=== PATIENT | female | born 1945 | race Caucasian/White ===

== ENCOUNTER → 2024-08-04 12:24 | Outpatient (REF) | payer MEDICARE, OTHER, SELFPAY ==
[2024-08-04 16:04] LABS: ALT (SGPT) 34 U/L (0-35); AST (SGOT) 52 U/L (14-36); Albumin 4.4 g/dl (3.5-5.0); Alkaline Phosphatase 59 U/L (38-126); Blood Urea Nitrogen 28 mg/dl (7-17); Calcium 10.2 mg/dl (8.4-10.2); Carbon Dioxide 28 mmol/L (22-30); Chloride 100 mmol/L (98-107); Glucose 106 mg/dl (70-99); Sodium 139 mmol/L (135-145); Total Bilirubin 0.7 mg/dl (0.2-1.3); Total Protein 7.1 g/dl (6.3-8.2); eGFR 56.95
[2024-08-04 16:24] LABS: Vitamin D, 25-OH*** 46.7 ng/mL (30-80)
== END ==
LOC: HWRAD 12:24
PROVIDERS: ATTENDING PHYSICIAN Hospitalist; FAMILY PHYSICIAN Family Medicine; REFERRING PHYSICIAN Psychiatry & Neurology Psychiatry
DX: M81.0 Age-related osteoporosis without current pathological fracture (principal); E55.9 Vitamin D deficiency, unspecified
CPT/HCPCS: 36415; 80053; 82306

== ENCOUNTER 2024-12-30 13:32 | Emergency (ER) | payer MEDICARE, OTHER, SELFPAY ==
[2024-12-30 13:36] VITALS: BP 195/89
[2024-12-30 14:05] VITALS: BMI 36.0
[2024-12-30 14:12] VITALS: BP 169/70
--- NOTE | 2024-12-30 14:14 | EDRN ---
Maddy DE LA TORRE in room w/ pt at this time. Pt states pain is constant 8/10 and increases w/ movement up to 10/10. Pt states pain is in R calf. No swelling noted in comparing usman legs.
--- NOTE | 2024-12-30 14:57 | ED.GENMED ---
History of Present Illness
<Janie Smith PA-C - Last Filed: 12/30/24 20:46>
General
Chief Complaint: DVT/Possible Blood Clot
Source: patient
Exam Limitations: none
Time Seen by Provider: 12/30/24 14:01
Nursing documentation reviewed up to this point in time: agreed with
History of Present Illness
History of Present Illness:
79-year-old female with a history of chronic back pain secondary to compression fractures and degenerative changes on opiates, right nephrectomy for staghorn calculus without any chronic kidney disease, hypertension, hyperlipidemia and diabetes who
presents for atraumatic right calf pain for the last day. Patient says it started yesterday and is worse with walking and better at rest although she still has 8 out of 10 pain at rest. It is not swollen or red, she has no weakness or numbness.
It does not seem to be radiating down from her back but her back always bothers her. She is never been told she has a disc herniation at that level that she knows of. She has recently had an MRI a couple of months ago and at outside facility
Patient sees Ortho at [facility] and gets pain injections at a pain center.
Patient takes oxycodone 10 mg 6 times a day
She took the oxycodone for this pain and it did not help. She does chronically have skin discoloration in her lower extremities that she has never been told was any problem. She was unaware of the term venous stasis changes. She has no known
peripheral arterial disease that she is aware of. She has never seen a vascular surgeon. Patient has not had any groin pain, thigh pain, abdominal pain, chest pain, shortness of breath. She also has not had any discoloration in the foot like
purple foot, cold foot, paresthesias. There is no risk factors for DVT that she is aware of but that is why she is here to be checked for a blood clot
Past History
<Janie Smith PA-C - Last Filed: 12/30/24 20:46>
Past History
ED Past Medical History: HTN, Hypercholesterolemia and IDDM
Phy Exam
<Janie Smith PA-C - Last Filed: 12/30/24 20:46>
Physical Exam
Physical Exam:
GENERAL: Alert , in no apparent distress
EYE: pupils equal and reactive
NECK: Supple
ENT: o/p clr, mmm.
CARDIAC: Regular rate and rhythm .no edema
LUNGS: Clear breath sounds bilaterally, no acute respiratory distress, no wheezes/rales/rhonchi
ABDOMEN: Soft, without focal tenderness, no r/g, no cvat, normal bowel sounds
NEUROLOGICAL: Alert and oriented, no focal neuro deficits
SKIN: Warm and dry, skin intact.+VENOUS STASIS SKIN CHNAGES (HYPERPIGMENTATION)
MUSCULOSKELETAL: No edema, well perfused. neg monica's sign
CALF NONTENDER
NO SWELLING
SOME PAIN WITH R KNEE FLEXION, NO EFFUSION
NORMAL STRENGTH AND SENSATION IN THE CALF AND THE FOOT;
NO FOOT DROP
BACK: MILD PAIN WITH CHAGNING POSITION/FLEXION
NO WEAKNESS
NEG STRAIGHT LEG RAISE
PSYCH: Normal and appropriate interaction.
Course
<Janie Smith PA-C - Last Filed: 12/30/24 20:46>
Orders/Labs/Results
Orders:
Orders
12/30/24 14:34
HYDROmorphone [Dilaudid] 1 mg IV NOW STA
US Vasc Ltd W JENNIFER Urgent
Reason For Exam: R leg pain, no DP pulse
Venous Doppler Lwr Ext Rt [US Periph Venous LOWER Ext RT] Urgent
Comment:
Reason For Exam: calf p[ain
12/30/24 15:11
Complete Blood Count/With Diff Urgent
Comprehensive Metabolic Panel Urgent
Creatine Phosphokinase Urgent
Comment: CPK ADDED ON BY FLOOR 3:40PM 12-30-24
PTT Urgent
Prothrombin Time Urgent
12/30/24 15:39
Add On- LAB Urgent
Tests Added?: cpk
12/30/24 17:51
Maykel Wrap Right-Treatment ONCE
Acetaminophen [Tylenol] 650 mg PO NOW STA
Dexamethasone Sod Phosphate [Decadron] 10 mg IV NOW STA
Abnormal Lab Results
12/30/24
15:11
WBC 3.3 L 10^3/uL
(4.8-10.8)
MCH 31.8 H pg
(27.0-31.0)
Plt Count 77 L 10^3/uL
(130-400)
Absolute Lymphs (auto) 1.0 L 10^3/uL
(1.2-3.4)
Immature Gran % 0.6 H %
(0-0.5)
Monocytes % 11.1 H %
(1.7-9.3)
PT 15.1 H Sec
(11.4-14.6)
BUN 27 H mg/dl
(7-17)
Glucose 165 H mg/dl
(70-99)
AST 43 H U/L
(14-36)
Creatine Kinase 191 H U/L
(30-135)
12/30/24 15:11
12/30/24 15:11
Vital Signs
Initial and Last Documented VS:
Initial Vital Signs
Temp Pulse Resp BP Pulse Ox
36.7 C 70 16 195/89 98
12/30/24 13:36 12/30/24 13:36 12/30/24 13:36 12/30/24 13:36 12/30/24 13:36
Last Documented Vital Signs
Temp Pulse Resp BP Pulse Ox
36.7 C 57 16 160/61 94
12/30/24 13:36 12/30/24 17:27 12/30/24 17:27 12/30/24 17:27 12/30/24 17:27
<Evaristo SaraiTawana Kohler, DO - Last Filed: 12/30/24 15:51>
Orders/Labs/Results
Orders:
Orders
12/30/24 14:34
HYDROmorphone [Dilaudid] 1 mg IV NOW STA
US Vasc Ltd W JENNIFER Urgent
Reason For Exam: R leg pain, no DP pulse
Venous Doppler Lwr Ext Rt [US Periph Venous LOWER Ext RT] Urgent
Comment:
Reason For Exam: calf p[ain
12/30/24 15:11
Complete Blood Count/With Diff Urgent
Comprehensive Metabolic Panel Urgent
Creatine Phosphokinase Urgent
Comment: CPK ADDED ON BY FLOOR 3:40PM 12-30-24
PTT Urgent
Prothrombin Time Urgent
12/30/24 15:39
Add On- LAB Urgent
Tests Added?: cpk
12/30/24 17:51
Maykel Wrap Right-Treatment ONCE
Acetaminophen [Tylenol] 650 mg PO NOW STA
Dexamethasone Sod Phosphate [Decadron] 10 mg IV NOW STA
Abnormal Lab Results
12/30/24
15:11
WBC 3.3 L 10^3/uL
(4.8-10.8)
MCH 31.8 H pg
(27.0-31.0)
Plt Count 77 L 10^3/uL
(130-400)
Absolute Lymphs (auto) 1.0 L 10^3/uL
(1.2-3.4)
Immature Gran % 0.6 H %
(0-0.5)
Monocytes % 11.1 H %
(1.7-9.3)
PT 15.1 H Sec
(11.4-14.6)
BUN 27 H mg/dl
(7-17)
Glucose 165 H mg/dl
(70-99)
AST 43 H U/L
(14-36)
Creatine Kinase 191 H U/L
(30-135)
12/30/24 15:11
12/30/24 15:11
Vital Signs
Initial and Last Documented VS:
Initial Vital Signs
Temp Pulse Resp BP Pulse Ox
36.7 C 70 16 195/89 98
12/30/24 13:36 12/30/24 13:36 12/30/24 13:36 12/30/24 13:36 12/30/24 13:36
Last Documented Vital Signs
Temp Pulse Resp BP Pulse Ox
36.7 C 57 16 160/61 94
12/30/24 13:36 12/30/24 17:27 12/30/24 17:27 12/30/24 17:27 12/30/24 17:27
<Janie Smith PA-C - Last Filed: 12/30/24 20:46>
MDM/Problems Addressed
Differential Diagnosis Includes:
DVT, LAU'S CYST, ARTERIAL DISEASE, PVD, LUMBAR RADICUOPATHY
<Janie Smith PA-C - Last Filed: 12/30/24 20:46>
*Critical Care Note
Total Time (30-74mins, 75-104mins- exclusive of procedures): Not Applicable
ED Attending Note
<Janie Smith PA-C - Last Filed: 12/30/24 20:46>
-
Portions of this chart may have been created with voice recognition software.� Occasional wrong word or��sound alike� substitutions may have occurred due to the inherent limitations of voice recognition software.
<Evaristo Kohler DO - Last Filed: 12/30/24 15:51>
ED Attending Note
Patient seen and examined by attending physician: Yes
I performed the substantive portion of visit, reviewed & personally made and approve the management plan that is documented in note by myself or MARCOS.: Yes
ED Attending Note:
I agree with Cynthia's note.
Patient presents complaining of pain in her right posterior calf. Pain seems worse with walking. No fever, chills. Patient does have chronic back pain and she initially thought her leg pain was related to this but then she was concerned she might
have a clot.
Physical exam:
Awake alert and oriented x 3, no distress
Abdomen: Nontender
Extremities: Extremities are of equal temperature bilaterally. They appear equally pink. Capillary refill is less than 5 seconds bilaterally. It is difficult to palpate a dorsalis pedis pulse on the right but I am able to detect a faint dorsalis
pedis pulse with Doppler. Posterior tibial pulses easily noted with Doppler.
Obtain ultrasound to rule out DVT and also assess her arterial flow. Low suspicion for an arterial emergency.
Discharge Plan
Departure
Patient Disposition: Home (Routine Discharge)
Date of Disposition: 12/30/24
Time of Disposition: 17:38
Patient with high blood pressure during this ER visit?: No
Condition: Fair
Covid-19: Not Applicable
Discharge Problem:
Lau cyst, Peripheral arterial disease
Instructions: Peripheral Vascular (Arterial) Disease (DC), Lau's Cyst (DC), BLOOD PRESSURE
Referrals:
Tin Warner III, MD [Active] - Follow up in 1 week
Rian Goff Jr., [Family Provider] -
Activity Restrictions/Additional Instructions:
Your ultrasound showed no deep venous clot in your leg, you did have a Lau's cyst behind your knee which can certainly cause calf pain. This is usually caused by arthritis within the knee. Wear an Maykel wrap during the day for the next 3 to 5 days
to see if this helps with compression. Usually these Lau's cyst do resolve on their own but when they are persistent and orthopedics potentially may drain them although not usually.
You should see a vascular doctor for some peripheral vascular disease that was noticed on your exam. Your ultrasound does document blood flow to your foot however there is some diminished flow to the leg and suggestive of arterial disease. Call to
make a follow-up appointment. This is not an emergency but should you have a color change to your foot, cold foot, severe pain in the foot, you should return to the ER immediately.
Interventions
Interventions:
*Risk Screen - Suicide Last Done: 12/30/24 13:36
*General Assessment Last Done: 12/30/24 14:06
*Neglect/Abuse Screening Last Done: 12/30/24 13:36
*ED- Fall Risk Assessment Last Done: 12/30/24 14:06
*ED COVID-19 Vaccine History Last Done: 12/30/24 14:06
*Nursing Disposition Last Done: 12/30/24 18:35
ED- Cardiac Assessment Last Done: 12/30/24 14:08
ED- Pulmonary Assessment Last Done: 12/30/24 14:08
ED-Peripheral Vascular Assessment Last Done: 12/30/24 14:10
ED-Skin Assessment Last Done: 12/30/24 14:08
Discharge Date and Time
Discharge Date/Time: 12/30/24 18:35
Print Language: YI
[2024-12-30] MEDS: DILAUDID 1 MG IV (15:06)
[2024-12-30 15:16] VITALS: BP 156/70
[2024-12-30 15:21] VITALS: BP 157/66
[2024-12-30 15:30] LABS: INR 1.16; PT 15.1 Sec (11.4-14.6)
[2024-12-30 15:31] LABS: APTT 32.2 Sec (23.4-35.0)
[2024-12-30 15:34] LABS: ALT (SGPT) 31 U/L (0-35); AST (SGOT) 43 U/L (14-36); Albumin 3.9 g/dl (3.5-5.0); Alkaline Phosphatase 60 U/L (38-126); Blood Urea Nitrogen 27 mg/dl (7-17); Calcium 9.4 mg/dl (8.4-10.2); Carbon Dioxide 27 mmol/L (22-30); Chloride 104 mmol/L (98-107); Estimated Creatinine Clearance 59 ml/min; Glucose 165 mg/dl (70-99); Potassium 3.8 mmol/L (3.5-5.1); Sodium 139 mmol/L (135-145); Total Bilirubin 0.8 mg/dl (0.2-1.3); Total Protein 6.6 g/dl (6.3-8.2); eGFR > 60.00
[2024-12-30 15:40] LABS: % Basophils 0.6 % (0-2); % Eosinophils 3.1 % (0-6); % Immature Granulocytes 0.6 % (0-0.5); % Lymphocytes 29.2 % (20.5-51.1); % Monocytes 11.1 % (1.7-9.3); % Neutrophils 55.4 % (42.2-75.2); Absolute Eosinophils 0.1 10^3/uL (0-0.7); Absolute Monocytes 0.4 10^3/uL (0.1-0.6); Absolute Neutrophils 1.8 10^3/uL (1.4-6.5); Hemoglobin 13.9 g/dL (12.0-16.0); Mean Corp Hgb Conc. 34.8 g/dL (33.0-37.0); Mean Corpuscular Hgb 31.8 pg (27.0-31.0); Mean Corpuscular Volume 91.5 fL (81.0-99.0); Mean Platelet Volume 10.4 fL (7.4-10.4); Nucleated Red Blood Cells % 0 %; Platelet Count 77 10^3/uL (130-400); Red Blood Cell Count 4.37 10^6/uL (4.20-5.40); Red Cell Dist. Width 13.3 % (11.5-14.5); White Blood Cell Count 3.3 10^3/uL (4.8-10.8)
[2024-12-30 15:45] VITALS: BP 152/69
[2024-12-30 15:54] LABS: Creatine Phosphokinase 191 U/L (30-135)
[2024-12-30 17:27] VITALS: BP 160/61
--- NOTE | 2024-12-30 17:44 | EDRN ---
Maddy DE LA TORRE in room w/ pt at this time.
[2024-12-30] MEDS: DECADRON 10 MG IV (18:05)
[2024-12-30] MEDS: TYLENOL 650 MG PO (18:06)
--- NOTE | 2024-12-30 18:32 | EDRN ---
Pt ambulated to BR w/ walker and back w/ no assist. From room P-1 across triage area and back to P-1. Pt felt better as she ambulated.
== END 2024-12-30 18:35 | disposition home or self-care (01) ==
LOC: EMR 13:32
PROVIDERS: Physician Assistant; EMERGENCY PHYSICIAN Emergency Medicine; FAMILY PHYSICIAN Family Medicine
DX: M71.21 Synovial cyst of popliteal space [Baker], right knee (principal); I73.9 Peripheral vascular disease, unspecified; E78.00 Pure hypercholesterolemia, unspecified; I10 Essential (primary) hypertension; E11.9 Type 2 diabetes mellitus without complications; G89.29 Other chronic pain; M54.9 Dorsalgia, unspecified; Z90.5 Acquired absence of kidney; Z79.4 Long term (current) use of insulin
CPT/HCPCS: 96374; 96375; 99284; 80053; 82550; 85025; 85610; 85730; 93922; 93926; 93971

== ENCOUNTER 2025-01-09 22:24 | Emergency (ER) | payer MEDICARE, OTHER, SELFPAY ==
[2025-01-09 22:26] VITALS: BP 157/75
[2025-01-09 23:36] VITALS: BMI 35.7
[2025-01-09 23:45] VITALS: BP 178/68
--- NOTE | 2025-01-09 23:58 | ED.GENMED ---
History of Present Illness
General
Chief Complaint: Dizziness
Source: patient and family (Daughter at bedside)
Exam Limitations: none
Time Seen by Provider: 01/09/25 23:37
Nursing documentation reviewed up to this point in time: agreed with
History of Present Illness
History of Present Illness:
79-year-old female is here for pain in her right leg.
She states she was here 2 weeks ago for similar symptoms and they did an ultrasound to rule out DVT and told her she had a Lau's cyst.
She states they referred her to a vascular surgeon. She has an appointment with vascular surgery in January.
She states the pain in her leg has become gradually worse and now has pain with walking.
She denies feeling dizzy at this time, during initial encounter, patient never mentioned dizziness but her daughter at bedside keeps saying 'and she was dizzy and she was dizzy...'
Pt states as she has been walking past 2 days, feels unsteady on her feet due to pain right leg and swelling of feet and she is afraid she is going to fall. So because she felt like she was imbalanced and going to fall due to her right leg pain,
she states it felt like she was dizzy or lightheaded.
Past History
Past History
ED Past Medical History: HTN, Hypercholesterolemia and IDDM
Review of Systems
Review of Systems
Allergies reviewed?: Yes
All Other Systems: ROS reviewed and negative except as documented in HPI and ROS
Constitutional: Denies fever or chills
Respiratory: Denies trouble breathing
Cardiac: Denies chest pain
ABD/GI: Denies abdominal pain, nausea, vomiting or diarrhea
: Denies dysuria, frequency or difficulty voiding
Musculoskeletal: Reports back pain (Chronic)
Skin: Reports no symptoms
Neurological: Reports no symptoms
Phy Exam
Physical Exam
Physical Exam:
GENERAL: No acute distress. A&Ox3.
CONSTITUTIONAL: Afebrile.
EYES: clear, conjunctivae normal
ENMT: moist mucus membranes, Pharynx nl
RESPIRATORY: Regular respirations, nonlabored, lungs clear.
CARDIOVASCULAR: Regular rate and rhythm, no murmurs, no rubs. Left foot DP pulse 2/4, right foot DP pulse 1/4. Brisk capillary refill, foot is warm and pink.
GI: Soft, nontender, normal BS
MUSCULOSKELETAL: Moves with ease. Well perfused. No tenderness to palpation of right lower extremity, calf nontender, right foot dorsum is a little puffy but no significant edema.
SKIN: Warm, dry, pink
PSYCH: Normal mood and affect. Well kept, interactive and appropriate
NEUROLOGIC: Awake, alert and oriented. Cranial nerves II to XII intact. No focal neurological deficits
Course
Orders/Labs/Results
Orders:
Orders
01/09/25 22:28
ECG [Electrocardiogram (*1)] Urgent
Reason for Study: Vertigo / Dizzy
EKG- Treatment ONCE
01/09/25 22:53
Complete Blood Count/With Diff Urgent
Comment: REDRAW
Comprehensive Metabolic Panel Urgent
Comment: REDRAW
01/10/25 00:47
Gabapentin [Neurontin] 100 mg PO NOW STA
Abnormal Lab Results
01/10/25
00:13
WBC 4.2 L 10^3/uL
(4.8-10.8)
MCH 31.6 H pg
(27.0-31.0)
Plt Count 97 L 10^3/uL
(130-400)
MPV 10.7 H fL
(7.4-10.4)
Abs Immat Gran (auto) 0.1 H 10^3/uL
(0-0.05)
Absolute Lymphs (auto) 1.1 L 10^3/uL
(1.2-3.4)
Immature Gran % 1.7 H %
(0-0.5)
Monocytes % 13.2 H %
(1.7-9.3)
BUN 25 H mg/dl
(7-17)
Glucose 164 H mg/dl
(70-99)
01/10/25 00:13
01/10/25 00:13
Vital Signs
Initial and Last Documented VS:
Initial Vital Signs
Temp Pulse Resp BP Pulse Ox
98.8 F 82 19 157/75 97
01/09/25 22:26 01/09/25 22:26 01/09/25 22:26 01/09/25 22:26 01/09/25 22:26
Last Documented Vital Signs
Temp Pulse Resp BP Pulse Ox
98.8 F 73 20 162/63 95
01/09/25 22:26 01/10/25 01:15 01/10/25 01:00 01/10/25 01:00 01/10/25 01:10
MDM/Problems Addressed
Differential Diagnosis Includes:
PAD, neuropathy, Lau's cyst
MDM/Problems Addressed:
79-year-old female is here for pain in her right leg.
She states she was here 2 weeks ago for similar symptoms and they did an ultrasound to rule out DVT and told her she had a Lau's cyst. She thinks its the Lau's cyst causing her pain
She states they referred her to a vascular surgeon. She has an appointment with vascular surgery in January (4 weeks).
She states the pain in her leg has become gradually worse and now has pain with walking.
She also states both her feet felt swollen past 2 days and didn't feel like she could walk with good balance due to the feeling in her feet and was afraid she would fall
She denies feeling dizzy at this time, during initial encounter, patient never mentioned dizziness but her daughter at bedside keeps saying 'and she was dizzy and she was dizzy...'
Pt states as she has been walking past 2 days, feels unsteady on her feet due to pain right leg and swelling of feet and she is afraid she is going to fall. So because she felt like she was imbalanced and going to fall due to her right leg pain,
she states it felt like she was dizzy or lightheaded.
CBC: No clinically significant abnormality. Patient has chronic mild thrombocytopenia
CMP: Unremarkable
EKG: Normal sinus rhythm
I reviewed the ultrasound of her leg from 12/30 and there was a right Lau's cyst that was similar to that seen on a previous ultrasound in 2021
Patient had arterial studies of her legs and that is the reason she was referred to vascular surgery.
I explained these results to the patient and her daughter, and patient was amazed that it is not the Lau's cyst that is causing her pain. I explained to her how peripheral arterial disease can cause her type of pain, she is diabetic and may be
experiencing neuropathic pain also.
Patient is already taking hydrocodone 10 mg tablets up to 6 times a day for her chronic back pain and she is also taking Celebrex 1 or 2 times a day as well as Tylenol.
Plan: Start patient on Neurontin and she will let her PCP know if it helps after a week
Also suggested CBD ointment for her leg pain
*EKG
EKG Intrepretation Date: 01/09/22
Interpretation: normal
Heart Rate: 81
Rate: normal
Rhythm: sinus
[place]: normal axis
Interval: normal interval
QRS Pattern: normal QRS
Ischemia: no ischemia
*Critical Care Note
Total Time (30-74mins, 75-104mins- exclusive of procedures): Not Applicable
ED Attending Note
-
Portions of this chart may have been created with voice recognition software.� Occasional wrong word or��sound alike� substitutions may have occurred due to the inherent limitations of voice recognition software.
Discharge Plan
Departure
Patient Disposition: Home (Routine Discharge)
Date of Disposition: 01/10/25
Time of Disposition: 00:57
Patient with high blood pressure during this ER visit?: No
Condition: Fair
Discharge Problem:
Pain in right leg
Instructions: Peripheral artery disease and claudication, Neuropathic pain
Prescriptions:
New
gabapentin 100 mg capsule
100 mg PO BID Qty: 30 0RF
No Action
irbesartan-hydrochlorothiazide [Avalide] 150-12.5 mg Tablet
2 tab PO DAILY
atenolol 100 mg Tablet
200 mg PO BID
amlodipine [Norvasc] 10 mg Tablet
10 mg PO DAILY
celecoxib [Celebrex] 100 mg Capsule
100 mg PO BID
lisinopril 2.5 mg Tablet
2.5 mg PO DAILY
ezetimibe [Zetia] 10 mg Tablet
10 mg PO HS
Lantus U-100 Insulin 100 unit/mL Cartridge
0 unit SC HS
omega-3 acid ethyl esters [Lovaza] 1 gram Capsule
2 cap PO BID
fenofibrate nanocrystallized [Tricor] 48 mg Tablet
48 mg PO HS
oxycodone 10 mg Tablet
10 mg PO Q4H PRN (Reason: pain)
Januvia
100 mg PO DAILY
Novolog FlexPen U-100 Insulin
0 unit SC BID
Referrals:
Your, vascular surgeon [Other] - Keep scheduled appt
Rian Goff Jr., DO [Family Provider] -
Activity Restrictions/Additional Instructions:
As we discussed, your leg pain may be caused by your peripheral artery disease or it could be neuropathy pain from your diabetes.
Try the gabapentin(Neurontin) and let your doctor know if it helps, he will have to write a prescription if you need more. I sent a prescription for this to your pharmacy
Keep your appointment with the vascular doctor in January
You may try CBD ointment topically to the areas of your leg that are painful.
Interventions
Interventions:
*Risk Screen - Suicide Last Done: 01/09/25 22:26
*General Assessment Last Done: 01/10/25 01:54
*Neglect/Abuse Screening Last Done: 01/09/25 22:26
*ED- Fall Risk Assessment Last Done: 01/10/25 01:54
*ED COVID-19 Vaccine History Last Done: 01/10/25 01:10
*Nursing Disposition Last Done: 01/10/25 01:30
ED- Neurological Assessment Last Done: 01/09/25 23:40
ED- Cardiac Assessment Last Done: 01/09/25 23:40
Discharge Date and Time
Discharge Date/Time: 01/10/25 01:30
Print Language: NEPALI
[2025-01-10 00:32] VITALS: BP 161/71
[2025-01-10 00:39] LABS: ALT (SGPT) 27 U/L (0-35); AST (SGOT) 34 U/L (14-36); Albumin 3.7 g/dl (3.5-5.0); Alkaline Phosphatase 70 U/L (38-126); Blood Urea Nitrogen 25 mg/dl (7-17); Calcium 9.7 mg/dl (8.4-10.2); Carbon Dioxide 25 mmol/L (22-30); Chloride 104 mmol/L (98-107); Estimated Creatinine Clearance 59 ml/min; Glucose 164 mg/dl (70-99); Potassium 3.8 mmol/L (3.5-5.1); Sodium 137 mmol/L (135-145); Total Bilirubin 0.7 mg/dl (0.2-1.3); Total Protein 6.5 g/dl (6.3-8.2); eGFR > 60.00
[2025-01-10 00:42] LABS: % Basophils 0.7 % (0-2); % Eosinophils 2.4 % (0-6); % Immature Granulocytes 1.7 % (0-0.5); % Monocytes 13.2 % (1.7-9.3); Absolute Eosinophils 0.1 10^3/uL (0-0.7); Absolute Immature Granulocytes 0.1 10^3/uL (0-0.05); Absolute Lymphocytes 1.1 10^3/uL (1.2-3.4); Absolute Monocytes 0.6 10^3/uL (0.1-0.6); Absolute Neutrophils 2.4 10^3/uL (1.4-6.5); Hemoglobin 13.6 g/dL (12.0-16.0); Mean Corp Hgb Conc. 34.9 g/dL (33.0-37.0); Mean Corpuscular Hgb 31.6 pg (27.0-31.0); Mean Corpuscular Volume 90.7 fL (81.0-99.0); Mean Platelet Volume 10.7 fL (7.4-10.4); Nucleated Red Blood Cells % 0 %; Platelet Count 97 10^3/uL (130-400); Red Cell Dist. Width 13.4 % (11.5-14.5); White Blood Cell Count 4.2 10^3/uL (4.8-10.8)
[2025-01-10 01:00] VITALS: BP 162/63
[2025-01-10] MEDS: NEURONTIN 100 MG PO (01:35)
== END 2025-01-10 01:30 | disposition home or self-care (01) ==
LOC: EMR 22:24
PROVIDERS: EMERGENCY PHYSICIAN Student in an Organized Health Care Education/Training Program; FAMILY PHYSICIAN Family Medicine
DX: M79.604 Pain in right leg (principal); I10 Essential (primary) hypertension; E78.00 Pure hypercholesterolemia, unspecified; E11.9 Type 2 diabetes mellitus without complications; G89.29 Other chronic pain; D69.6 Thrombocytopenia, unspecified; I73.9 Peripheral vascular disease, unspecified; Z79.4 Long term (current) use of insulin; Z79.899 Other long term (current) drug therapy
CPT/HCPCS: 99284; 80053; 85025; 93005

== ENCOUNTER 2025-01-30 08:28 | Day surgery (SDC) | payer MEDICARE, OTHER, SELFPAY ==
[2025-01-24 12:02] VITALS: BMI 39.4
--- NOTE | 2025-01-25 09:14 | PTCARENOTE ---
Platelets 95, collected 01/24/25, Galina at Dr Warner's office notified.
--- NOTE | 2025-01-25 15:04 | PTCARENOTE ---
Plt count 95 collected 01/24/25, reported to Dr Rolon, no further intervention requested.
[2025-01-30] VITALS (16 sets, daily range): BP systolic 14–205; BP diastolic 48–73
[2025-01-30 09:57] LABS: Glucose - Point of Care 115 mg/dl (70-99)
--- NOTE | 2025-01-30 10:19 | W.SUR.PREOP ---
Pre-Operative Surgical Note
-
I have examined this patient prior to the performance of the scheduled procedure.
The patient's condition is unchanged from the time of the current History and
Physical and the patient is able to undergo the scheduled procedure.
[2025-01-30 12:42] LABS: Glucose - Point of Care 125 mg/dl (70-99)
[2025-01-30] MEDS: LOW STRENGTH ASPIRIN 81 MG PO (13:15)
[2025-01-30] MEDS: PLAVIX 150 MG PO (13:16)
[2025-01-30] MEDS: AVAPRO 300 MG PO (14:18)
[2025-01-30] MEDS: NORVASC 10 MG PO (14:19)
[2025-01-30] MEDS: ZESTRIL 2.5 MG PO (14:19)
[2025-01-30] MEDS: ORETIC 25 MG PO (14:20)
--- NOTE | 2025-01-30 17:24 | OR.RPT ---
Operative Report
Operative Report
Date of Operation: 01/30/2025
Pre Op Diagnosis:
1. [place] artery atherosclerosis with right toe ulcers
2. Diabetes with lower extremity atherosclerotic disease
Post Op Diagnosis:
1. [place] artery atherosclerosis with right toe ulcers
2. Diabetes with lower extremity atherosclerotic disease
Procedure:
1.) intravascular lithotripsy to right distal superficial femoral artery and above-knee popliteal artery (5 mm x 80 mm E8 shockwave balloon)
2.) balloon angioplasty and drug-eluting stent placement to distal superficial femoral artery and above-knee popliteal artery (6 mm x 100 mm Zilver PTX stent)
3.) diagnostic aortobiiliac arteriogram
4.) diagnostic right lower extremity arteriogram
5.) ultrasound-guided percutaneous access to the left common femoral artery
6.) Pro-glide closure of left common femoral artery access
Surgeon: Tin Warner III, MD
Structural Rigger: Lane Guy MD PGY1
Anesthesia: Sedation with local
Fluoroscopy:
32.8 min
439 mGy
162.91 gy.cm2
Complications: None
Estimated Blood Loss: Less than 20 cc
History and Indications for Procedure: 79-year-old female with limb threatening ischemia to her right foot manifested by nonhealing ulcer between the 4th and 5th toes
Procedure in Detail: Rosibel George was correctly identified and placed supine on the operating table. After adequate induction of anesthesia the bilateral groins were prepped and draped in the usual sterile fashion. A timeout was performed with
the nursing and anesthesia staff confirming the patient's identity as well as the nature and laterality of the procedure.
The left common femoral artery was identified under ultrasound guidance. The artery was patent. The superior and inferior aspects of the femoral head were identified with radiographic guidance and marked at the skin level. The proposed puncture site
was infiltrated with local anesthesia. Under ultrasound guidance we accessed the left common femoral artery with a micropuncture needle and upsized to a 5 Fr sheath over a Bentson wire. The wire and a Shepherds hook flush catheter were advanced into
the distal abdominal aorta and a diagnostic aorto-biiliac arteriogram was performed:
AORTO-ILIAC ARTERIOGRAM:
Aorta: Patent with no significant stenosis identified
Right common iliac artery: Patent with no significant stenosis identified
Right external iliac artery: Patent with no significant stenosis identified
Left common iliac artery: Patent with no significant stenosis identified
Left external iliac artery: Patent with no significant stenosis identified
Under roadmap guidance using a Glidewire and the Shepherds hook catheter we selected the right common iliac artery and then the external iliac artery. A Quickcross catheter was tracked up and over the aortic bifurcation and placed in the distal
external iliac artery. A diagnostic right lower extremity arteriogram was then performed which demonstrated the following:
RIGHT LOWER EXTREMITY:
Common femoral artery: Patent with no significant stenosis identified
Profunda femoral artery: Patent with no significant stenosis identified
Superficial femoral artery: Patent. Calcified plaque in the distal superficial femoral artery contributing to focal high-grade stenosis
Popliteal artery: Calcified plaque with focal high-grade stenosis above the knee. Patent behind the knee and below the knee with no significant stenosis identified
Anterior tibial artery: Patent stump but occluded thereafter with no distal reconstitution identified
Tibioperoneal trunk: Patent
Peroneal artery: Patent
Posterior tibial artery: Patent. Dominant tibial artery runoff. Continues across the ankle to form plantar branches which supplied the forefoot
ENDOVASCULAR INTERVENTION: Systemic heparin was administered. Exchanged out for a 6 Fr 45 cm sheath over a Storq wire. Selected the superficial femoral artery under roadmap guidance with Quickcross catheter and glidewire. The distal SFA and
above-knee popliteal artery were crossed with a 0.014 Glidewire advantage and 0.014 catheter. The wire and catheter were advanced into the below the knee popliteal artery and subtraction angio confirmed proper position in the true lumen. Due to the
heavily calcified nature of the superficial femoral and popliteal artery disease and in an effort to modify the calcium to achieve maximum luminal gain with endovascular intervention I elected to proceed with intravascular lithotripsy. A 5 mm x 80
mm E8 shockwave balloon was placed across the stenosis under roadmap guidance. Alternating rounds of lithotripsy pulse delivery at sub-nominal pressure and angioplasty at nominal pressure was performed across the stenosis. In between rounds of pulse
delivery and angioplasty the balloon was deflated and repositioned under roadmap guidance. All 400 pulses were delivered. Subsequent arteriogram demonstrated improved result. I then brought into position a 6 mm x 100 mm Zilver PTX stent and
positioned this across the distal superficial femoral artery/above-knee popliteal artery stenosis under roadmap guidance. The stent was deployed in the desired location and the delivery system removed over the wire. A 6 mm angioplasty balloon was
used to profile the entire length of the stent.
COMPLETION ARTERIOGRAM: Excellent technical result. Brisk flow through a widely patent superficial femoral artery and popliteal artery. Stent widely patent with brisk flow. No significant residual stenosis identified. Brisk flow into the foot
via the posterior tibial artery with easily identifiable flow to the forefoot and digits.
Satisfied with this result we concluded the procedure. The sheath tip was pulled back into the left external iliac artery. A single Pro-glide closure device was used to obtain hemostasis at the left common femoral artery access site. Protamine was
administered. Hemostasis was achieved in the left groin and a sterile dressing was applied.
The patient tolerated the procedure well and was taken to the recovery area in stable condition.
Attestation: I was present and responsible for the entire procedure.
Signed:
Tin Warner III, MD
Vascular Surgery
[facility]
== END 2025-01-30 17:35 | disposition home or self-care (01) ==
LOC: CATH 08:28
PROVIDERS: ATTENDING PHYSICIAN Surgery Vascular Surgery; PRIMARYCARE PHYSICIAN Family Medicine
DX: I70.235 Atherosclerosis of native arteries of right leg with ulceration of other part of foot (principal); E11.51 Type 2 diabetes mellitus with diabetic peripheral angiopathy without gangrene; L97.519 Non-pressure chronic ulcer of other part of right foot with unspecified severity; E11.621 Type 2 diabetes mellitus with foot ulcer; I10 Essential (primary) hypertension; Z90.5 Acquired absence of kidney; Z79.4 Long term (current) use of insulin; Z79.899 Other long term (current) drug therapy
CPT/HCPCS: C9765; 75625; 75716; 82962; C1725; C1760; C1769; C1874; C1894

== ENCOUNTER → 2025-02-01 15:52 | Outpatient (REF) | payer MEDICARE, OTHER, SELFPAY | LOC: HWRAD 15:52 | PROVIDERS: ATTENDING PHYSICIAN Podiatrist Foot & Ankle Surgery; FAMILY PHYSICIAN Family Medicine | DX: M86.171 Other acute osteomyelitis, right ankle and foot (principal) | CPT/HCPCS: 73630 ==

== ENCOUNTER 2025-02-20 07:04 | Emergency (ER) | payer MEDICARE, OTHER, SELFPAY ==
[2025-02-20 07:05] VITALS: BP 158/71
--- NOTE | 2025-02-20 07:39 | ED.GENMED ---
History of Present Illness
General
Chief Complaint: Swelling
Source: patient
Exam Limitations: none
Time Seen by Provider: 02/20/25 07:27
Nursing documentation reviewed up to this point in time: agreed with
History of Present Illness
History of Present Illness:
79-year-old female presents today for evaluation. Patient with recent balloon angioplasty and drug-eluting stent to distal superficial femoral artery and above-knee popliteal artery of right lower extremity, January 30. She is followed by Dr. Warner.
She presents to the ER complaining of right calf pain kept her awake last night. She denies any injury. She does report her to feel cold at night. She is on aspirin Plavix.
She denies any fever chills or redness to the area. No shortness of breath.
She does have a history of back pain denies any recent trauma.
Past History
Past History
ED Past Medical History: HTN, Hypercholesterolemia and IDDM
Review of Systems
Review of Systems
Allergies reviewed?: Yes
All Other Systems: ROS reviewed and negative except as documented in HPI and ROS
Constitutional: Reports no symptoms
Respiratory: Reports no symptoms
Cardiac: Reports no symptoms
ABD/GI: Reports no symptoms
Musculoskeletal: Reports other (right leg pain mild swelling to foot )
Skin: Reports no symptoms
Hematologic/Lymphatic: Reports no symptoms
Psychiatric: Reports no symptoms
Phy Exam
General Physical Exam
General Presentation: no apparent distress
General age: appears stated age
General Skin: warm and dry
General Habitus: normal
General Mental: alert
General Hydration: appears well hydrated
Neurological Exam
Neurological Exam: alert and oriented x3
Musculoskeletal Exam
Musculoskeletal Exam: full ROM and other (Pulses by Doppler bilateral lower extremities; right lower extremity warm to touch normal color mild swelling to the dorsal foot no obvious swelling to calf no actual calf tenderness)
Skin Exam
Skin Exam: normal color and warm/dry
Psychiatric Exam
Psychiatric Exam: normal mood/affect
Scores
Heart Failure Risk
Heart Failure Risk Score: Not Applicable
Course
Orders/Labs/Results
Orders:
Orders
02/20/25 07:41
IV Insert/Care/Rem.- Treatment PRN
Venous Doppler Lwr Ext Rt [US Perip Venous LOWER Ext RT] Urgent
Comment:
Reason For Exam: pain right calf
02/20/25 08:11
Complete Blood Count/With Diff Urgent
Comprehensive Metabolic Panel Urgent
02/20/25 10:38
Lower Ext Arterial & JENNIFER US [ Periph Art LOWER Ext w JENNIFER] Urgent
Comment:
Reason For Exam: right calf pain
02/20/25 11:52
Oxycodone [Roxicodone] 10 mg PO NOW STA
02/20/25 11:58
Dexamethasone Sod Phosphate [Decadron] 10 mg IM NOW STA
Abnormal Lab Results
02/20/25
08:11
WBC 4.1 L 10^3/uL
(4.8-10.8)
RBC 4.13 L 10^6/uL
(4.20-5.40)
MCH 32.2 H pg
(27.0-31.0)
Plt Count 83 L 10^3/uL
(130-400)
Absolute Lymphs (auto) 0.9 L 10^3/uL
(1.2-3.4)
Monocytes % 10.3 H %
(1.7-9.3)
Eosinophils % 6.7 H %
(0-6)
Potassium 3.4 L mmol/L
(3.5-5.1)
BUN 19 H mg/dl
(7-17)
Glucose 143 H mg/dl
(70-99)
02/20/25 08:11
02/20/25 08:11
Vital Signs
Initial and Last Documented VS:
Initial Vital Signs
Temp Pulse Resp BP Pulse Ox
97.8 F 66 20 158/71 98
02/20/25 07:05 02/20/25 07:05 02/20/25 07:05 02/20/25 07:05 02/20/25 07:05
Last Documented Vital Signs
Temp Pulse Resp BP Pulse Ox
97.8 F 70 20 156/88 98
02/20/25 07:05 02/20/25 12:00 02/20/25 07:05 02/20/25 12:00 02/20/25 12:00
MDM/Problems Addressed
Differential Diagnosis Includes:
Less likely arterial occlusion, DVT, infection, radicular pain/sciatica pain
MDM/Problems Addressed:
As documented patient is an 79-year-old female status post lithotripsy stent to the superficial right femoral artery and above-knee popliteal artery. This was done on January 30. She is on Plavix, aspirin and she is followed by vascular surgery. She
presents with pain in the right calf that woke her up while sleeping. This is not consistent with claudication pain. She has warm lower extremities bilateral with pulses by Doppler ultrasound arterial were done and normal. Possible nerve type
sciatica radicular pain. She does have oxycodone to take at home she is a diabetic I gave her 1 dose of IM Decadron however discussed close outpatient follow-up with family doctor to follow this and for further continued reevaluation. She may take
Tylenol as well. She is in no acute distress no neurological deficits.
*Radiology
Radiology exam reviewed: radiology read reviewed
*Pulse Oximetry
Patient hypoxic: no
*Critical Care Note
Total Time (30-74mins, 75-104mins- exclusive of procedures): Not Applicable
Data Reviewed
Review of Other/Old Records Reveals: Operative Reports and Discharge Summary
Source: patient and family
Patient Management
Discussion with other providers: Test Grader (Dr Britt )
ED Attending Note
-
Portions of this chart may have been created with voice recognition software.� Occasional wrong word or��sound alike� substitutions may have occurred due to the inherent limitations of voice recognition software.
Discharge Plan
Departure
Patient Disposition: Home (Routine Discharge)
Date of Disposition: 02/20/25
Time of Disposition: 12:30
Patient with high blood pressure during this ER visit?: Yes
Condition: Fair
Covid-19: Not Applicable
Discharge Problem:
Pain in right leg
Instructions: BLOOD PRESSURE
Prescriptions:
No Action
irbesartan-hydrochlorothiazide [Avalide] 150-12.5 mg Tablet
2 tab PO DAILY
atenolol 100 mg Tablet
200 mg PO BID
amlodipine [Norvasc] 10 mg Tablet
10 mg PO DAILY
celecoxib [Celebrex] 100 mg Capsule
100 mg PO BID
lisinopril 2.5 mg Tablet
2.5 mg PO DAILY
ezetimibe [Zetia] 10 mg Tablet
10 mg PO HS
omega-3 acid ethyl esters [Lovaza] 1 gram Capsule
2 cap PO BID
fenofibrate nanocrystallized [Tricor] 48 mg Tablet
48 mg PO HS
oxycodone 10 mg Tablet
10 mg PO Q4H PRN (Reason: pain)
Novolog FlexPen U-100 Insulin
0 unit SC BID
Januvia 100 mg Tablet
100 mg PO DAILY
insulin glargine [Lantus Solostar U-100 Insulin] 100 unit/mL (3 mL) Insulin Pen
40 - 60 unit SC HS
gabapentin 100 mg capsule
100 mg PO HS
clopidogrel 75 mg Tablet
75 mg PO DAILY Qty: 90 0RF
aspirin 81 mg capsule
81 mg PO DAILY Qty: 90 0RF
Referrals:
Rian Goff Jr., DO [Family Provider, Family Practice]
Activity Restrictions/Additional Instructions:
As discussed your ultrasounds were negative for acute findings. You were given 1 dose of steroids here in the ER it is possible that this is a nerve type pain such as sciatica however please follow-up close with your family doctor for reevaluation
of symptoms May take Tylenol for pain you have oxycodone for pain as well that you previously were prescribed. Take as directed. Please call your family doctor today for appointment in next several days.
return if any worsening of symptoms
Interventions
Interventions:
*Risk Screen - Suicide Last Done: 02/20/25 07:05
*General Assessment Last Done: 02/20/25 07:05
*Neglect/Abuse Screening Last Done: 02/20/25 11:31
*ED- Fall Risk Assessment Last Done: 02/20/25 10:57
*ED COVID-19 Vaccine History Last Done: 02/20/25 11:31
ED- Pulmonary Assessment Last Done: 02/20/25 10:56
ED-Skin Assessment Last Done: 02/20/25 10:57
Discharge Date and Time
Print Language: SWEDISH
[2025-02-20 08:32] LABS: % Basophils 0.7 % (0-2); % Eosinophils 6.7 % (0-6); % Immature Granulocytes 0.5 % (0-0.5); % Lymphocytes 21.4 % (20.5-51.1); % Monocytes 10.3 % (1.7-9.3); % Neutrophils 60.4 % (42.2-75.2); Absolute Eosinophils 0.3 10^3/uL (0-0.7); Absolute Lymphocytes 0.9 10^3/uL (1.2-3.4); Absolute Monocytes 0.4 10^3/uL (0.1-0.6); Absolute Neutrophils 2.5 10^3/uL (1.4-6.5); Hematocrit 37.8 % (37.0-47.0); Hemoglobin 13.3 g/dL (12.0-16.0); Mean Corp Hgb Conc. 35.2 g/dL (33.0-37.0); Mean Corpuscular Hgb 32.2 pg (27.0-31.0); Mean Corpuscular Volume 91.5 fL (81.0-99.0); Nucleated Red Blood Cells % 0 %; Platelet Count 83 10^3/uL (130-400); Red Blood Cell Count 4.13 10^6/uL (4.20-5.40); Red Cell Dist. Width 13.6 % (11.5-14.5); White Blood Cell Count 4.1 10^3/uL (4.8-10.8)
[2025-02-20 08:56] LABS: ALT (SGPT) 26 U/L (0-35); AST (SGOT) 36 U/L (14-36); Alkaline Phosphatase 53 U/L (38-126); Blood Urea Nitrogen 19 mg/dl (7-17); Calcium 9.2 mg/dl (8.4-10.2); Carbon Dioxide 26 mmol/L (22-30); Chloride 105 mmol/L (98-107); Glucose 143 mg/dl (70-99); Potassium 3.4 mmol/L (3.5-5.1); Sodium 138 mmol/L (135-145); Total Protein 6.6 g/dl (6.3-8.2); eGFR > 60.00
--- NOTE | 2025-02-20 11:01 | CON.VAS ---
Addendum entered and electronically signed by JAMIA Viveros 02/20/25 11:53:
Reviewed arterial ultrasound with JENNIFER/TBI and case discussed with on-call vascular surgeon Dr. Jimmy Britt M.D., recommend evaluation for nonarterial etiologies of pain, relayed to ED provider Galina Harrington.
Original Note:
Consultation
Consultation Request
Date/Time Consultation Performed: 02/20/25 1100
Requesting Provider: Galina Harrington
Performing Provider: Lupe Frederick, ADRIANO-C for Jimmy Britt M.D.
Reason for Consultation: Right calf pain
Medical History
-
Chief Complaint: Right calf pain
History of Present Illness:
This is an 79-year-old female with significant past medical history for hypertension, hypercholesteremia, diabetes, right nephrectomy, osteoporosis, spinal fracture, and peripheral arterial disease who presents to [place] ED on 02/20/2025 with
reports of acute onset of persistent right calf pain. Patient is known to our service that she is status post intravascular lithotripsy to right distal superficial femoral artery and above-knee popliteal artery (5 mm x 80 mm E8 shockwave balloon),
balloon angioplasty and drug-eluting stent placement to distal superficial femoral artery and above-knee popliteal artery (6 mm x 100 mm Zilver PTX stent), diagnostic aortobiiliac arteriogram, and diagnostic right lower extremity arteriogram on
01/30/[address] Tin Warner III. Patient endorses that she was recovering well and back to baseline, until last evening in the middle of the night when she developed acute onset of right calf pain described as cramping and stabbing, isolated
solely to the calf. She attempted to massage and utilize different positions but could not get pain to alleviate, leading to a restless/sleepless night; when the pain persisted this morning she decided to seek evaluation. She notes that no
position has alleviated or helped with the discomfort but does note that walking exacerbates pain. She denies motor weakness or decreased sensation to right leg, she endorses at home right leg felt cool but now that has resolved. She also reports
that since procedure she has been experiencing intermittent swelling at bilateral lower extremities. She was prescribed aspirin 81 mg and Plavix 75 mg p.o. daily which she endorses taking as prescribed.
Past Medical History
Past Medical History: HTN, Hypercholesterolemia, IDDM and Other (Osteoporosis, spinal fracture, peripheral arterial disease)
Past Surgical History: Gynecological (Bilateral oophorectomy) and Other (right nephrectomy)
Social History
Tobacco: Non-Smoker
Allergies / Home Medications
Allergy/AdvReac Type Severity Reaction Status Date / Time
clindamycin Allergy Unknown Verified 02/20/25 07:06
Penicillins Allergy Unknown Verified 02/20/25 07:06
�Medication �Instructions �Recorded �Confirmed �Type
Novolog FlexPen U-100 Insulin 0 unit SC BID SLIDING SCALE 01/10/25 01/30/25 History
amlodipine 10 mg tablet (Norvasc) 10 mg PO DAILY 01/10/25 01/30/25 History
atenolol 100 mg tablet 200 mg PO BID 01/10/25 01/30/25 History
celecoxib 100 mg capsule (Celebrex) 100 mg PO BID 01/10/25 01/30/25 History
ezetimibe 10 mg tablet (Zetia) 10 mg PO HS 01/10/25 01/30/25 History
fenofibrate nanocrystallized 48 mg 48 mg PO HS 01/10/25 01/30/25 History
tablet (Tricor)
irbesartan 150 2 tab PO DAILY 01/10/25 01/30/25 History
mg-hydrochlorothiazide 12.5 mg
tablet (Avalide)
lisinopril 2.5 mg tablet 2.5 mg PO DAILY 01/10/25 01/30/25 History
omega-3 acid ethyl esters 1 gram 2 cap PO BID 01/10/25 01/30/25 History
capsule (Lovaza)
oxycodone 10 mg tablet 10 mg PO Q4H PRN pain 01/10/25 01/30/25 History
gabapentin 100 mg capsule 100 mg PO HS 01/22/25 01/30/25 History
insulin glargine 100 unit/mL (3 40 - 60 unit SC HS sliding scale 01/22/25 01/30/25 History
mL) subcutaneous pen (Lantus
Solostar U-100 Insulin)
sitagliptin phosphate 100 mg 100 mg PO DAILY 01/22/25 01/30/25 History
tablet (Januvia)
aspirin 81 mg capsule 81 mg PO DAILY #90 caps 01/30/25 Rx
clopidogrel 75 mg tablet 75 mg PO DAILY #90 tabs 01/30/25 Rx
Review of Systems
-
History Source: Patient
Constitutional: Reports No Symptoms
EENT: Reports No Symptoms
Respiratory: Reports No Symptoms
Cardiac: Reports No Symptoms
Abdomen/GI: Reports No Symptoms
: Reports No Symptoms
Musculoskeletal: Reports Edema (Bilateral lower extremity edema) and Other (Acute onset of right lower extremity calf pain described as cramp and sharp)
Skin: Reports No Symptoms
Neurological: Reports No Symptoms
Endocrine: Reports No Symptoms
Physical Exam
Vital Signs
Temp Pulse Resp BP Pulse Ox
97.8 F 66 20 158/71 98
02/20/25 07:05 02/20/25 07:05 02/20/25 07:05 02/20/25 07:05 02/20/25 07:05
Lab Results
02/20/25 08:11
02/20/25 08:11
Physical Exam
General: No Apparent Distress
HEENT: Normocephalic, Anicteric and Atraumatic
Respiratory: Non Labored Respirations
Cardiac: Negative JVD
GI: Soft, Non Tender and Non Distended
Musculoskeletal: Edema (Bilateral lower extremities with trace edema)
Skin: Warm and Dry
Neuro: AO x 3
Pulses: Bilateral Femoral: +1, Right Dorsalis Pedis: Doppler and Right Posterior Tibial: Doppler
Assessment / Plan
-
Assessment: 79-year-old female status post Intravascular lithotripsy to right distal superficial femoral artery and above-knee popliteal artery (5 mm x 80 mm E8 shockwave balloon), balloon angioplasty and drug-eluting stent placement to distal
superficial femoral artery and above-knee popliteal artery (6 mm x 100 mm Zilver PTX stent), diagnostic aortobiiliac arteriogram on 01/30/[address] Tin Warner III, presents to ED with reports of acute onset of right calf pain concerning for rest
pain given recent peripheral intervention.
Plan
Patient with Doppler PT and DP signal at right foot, right lower extremity with intact motor and sensation, and right foot warm. Physical exam supportive of blood flow to right foot, given patient's history of right nephrectomy will attempt to
avoid contrast dye and begin assessment/work up with arterial peripheral ultrasound and JENNIFER/TBI of lower extremities. If ultrasound is abnormal we will then consider angiogram versus CT angio. Plan reviewed with salesperson furniture attending, Dr. Jimmy Britt.
Data Reviewed
-
Labs: Labs Reviewed by me
[2025-02-20 12:00] VITALS: BP 156/88
[2025-02-20] MEDS: ROXICODONE 10 MG PO (12:04)
[2025-02-20] MEDS: DECADRON 10 MG IM (12:04)
== END 2025-02-20 12:45 | disposition home or self-care (01) ==
LOC: EMR 07:04
PROVIDERS: Nurse Practitioner; EMERGENCY PHYSICIAN Emergency Medicine; FAMILY PHYSICIAN Family Medicine
DX: M79.604 Pain in right leg (principal); E11.51 Type 2 diabetes mellitus with diabetic peripheral angiopathy without gangrene; E78.00 Pure hypercholesterolemia, unspecified; I10 Essential (primary) hypertension; Z79.02 Long term (current) use of antithrombotics/antiplatelets; Z79.4 Long term (current) use of insulin; Z79.82 Long term (current) use of aspirin; Z95.820 Peripheral vascular angioplasty status with implants and grafts
CPT/HCPCS: 99284; 96372; 80053; 85025; 93922; 93925; 93971

== ENCOUNTER → 2025-04-16 09:46 | Outpatient (REF) | payer MEDICARE, OTHER, SELFPAY ==
[2025-04-16 11:46] LABS: Hematocrit 35.0 % (37.0-47.0); Hemoglobin 12.3 g/dL (12.0-16.0); Mean Corp Hgb Conc. 35.1 g/dL (33.0-37.0); Mean Corpuscular Volume 89.7 fL (81.0-99.0); Platelet Count 106 10^3/uL (130-400); Red Cell Dist. Width 13.2 % (11.5-14.5)
[2025-04-16 11:54] LABS: Blood Urea Nitrogen 19 mg/dl (7-17); Calcium 8.8 mg/dl (8.4-10.2); Carbon Dioxide 25 mmol/L (22-30); Chloride 106 mmol/L (98-107); Glucose 105 mg/dl (70-99); Potassium 3.7 mmol/L (3.5-5.1); Sodium 136 mmol/L (135-145); eGFR > 60.00
== END ==
LOC: OLABP 09:46
PROVIDERS: ATTENDING PHYSICIAN Family Medicine
DX: E11.9 Type 2 diabetes mellitus without complications (principal); S92.514D Nondisplaced fracture of proximal phalanx of right lesser toe(s), subsequent encounter for fracture with routine healing; L97.519 Non-pressure chronic ulcer of other part of right foot with unspecified severity; D69.6 Thrombocytopenia, unspecified; I10 Essential (primary) hypertension; E78.5 Hyperlipidemia, unspecified; M48.54XD Collapsed vertebra, not elsewhere classified, thoracic region, subsequent encounter for fracture with routine healing; I70.261 Atherosclerosis of native arteries of extremities with gangrene, right leg
CPT/HCPCS: 36415; 80048; 85027

== ENCOUNTER → 2025-05-28 14:26 | Outpatient (REF) | payer MEDICARE, OTHER, SELFPAY | LOC: RAD 14:26 | PROVIDERS: ATTENDING PHYSICIAN Registered Nurse; FAMILY PHYSICIAN Family Medicine | DX: I70.221 Atherosclerosis of native arteries of extremities with rest pain, right leg (principal) | CPT/HCPCS: 93922 ==

== ENCOUNTER 2025-08-04 18:37 | Inpatient (IN) | payer MEDICARE, OTHER, SELFPAY ==
[2025-08-04] VITALS (12 sets, daily range): BP systolic 127–163; BP diastolic 60–85; PULSE 62–73; BMI 33.0; BMI 32.7
--- NOTE | 2025-08-04 15:01 | ED.GENMED ---
History of Present Illness
<Richardson Hart PA-C - Last Filed: 08/04/25 16:59>
General
Chief Complaint: Extremity Pain (non-traumatic)
Source: patient and family
Time Seen by Provider: 08/04/25 14:34
History of Present Illness
History of Present Illness:
79-year-old female with past medical history of hypertension, hyperlipidemia, insulin-dependent diabetes, peripheral arterial/peripheral vascular disease presenting to the ER for evaluation of bilateral lower extremity paresthesia/numbness that has
been described to be chronic but gradually worsening, 2 falls within the last 10 days with the patient stating she no longer feels steady on her feet despite use of her walker. Patient states she feels as if she needs to go to rehab as she does not
feel comfortable at home. She denies any focal weakness or inability to range of motion her lower extremities, color changes, significant pain or any other concerns. She does note that she has previously had a stent placed to her left lower
extremity due to complications from peripheral arterial disease in the past done by Dr. Warner. Patient is compliant with her aspirin and Plavix as well as her diabetic medication noting that her blood sugars usually are in the low 100s.
Past History
<Richardson Hart PA-C - Last Filed: 08/04/25 16:59>
Past History
ED Past Medical History: HTN, Hypercholesterolemia, IDDM and Other (Peripheral vascular disease)
ED Past Surgical History: Gynecological, Urological and Other
Social History
Tobacco: Non-smoker
Alcohol: None
Drug: None
Personal:
Living: with family
Review of Systems
<Richardson aHrt PA-C - Last Filed: 08/04/25 16:59>
Review of Systems
All Other Systems: ROS reviewed and negative except as documented in HPI and ROS
Phy Exam
<Richardson Hart PA-C - Last Filed: 08/04/25 16:59>
Physical Exam
Physical Exam:
GENERAL: Alert , in no apparent distress
HEAD: Normocephalic atraumatic
EYE: conjunctiva clear
NECK: Supple
ENT: o/p clr, mmm.
CARDIAC: Regular rate and rhythm
LUNGS: Clear breath sounds bilaterally, no acute respiratory distress, no wheezes/rales/rhonchi
NEUROLOGICAL: Alert and oriented
SKIN: Warm and dry, skin intact. Dusky appearance to the bilateral lower extremities, spider veins varicose veins noted, slight edema to the dorsum of the right foot compared to the left
MUSCULOSKELETAL: I was able to Doppler both pedal and tibial pulses bilaterally. Cap refills less than 2 seconds, sensation is grossly intact to light touch and patient is able to range of motion the foot and ankle without much difficulty or pain
PSYCH: Normal and appropriate interaction.
Scores
<Richardson Hart PA-C - Last Filed: 08/04/25 16:59>
Heart Failure Risk
Heart Failure Risk Score: Not Applicable
Heart Score for Chest Pain Patients
STEMI patient?: Not applicable
Withdrawal Assessment of Alcohol
Withdrawal Assessment Completed?: Not applicable
Course
<Richardson Hart PA-C - Last Filed: 08/04/25 16:59>
Orders/Labs/Results
Orders:
Orders
08/04/25 14:57
Case Management Consult ONCE
Case Management Consult: Discharge Planning
Physical Therapy Consult [Pt Eval And Treat] Urgent
Activity Level: Ambulate
08/04/25 15:23
Basic Metabolic Panel Urgent
Complete Blood Count/With Diff Urgent
08/04/25 17:01
Electrocardiogram (*1) Urgent
Reason for Study: Other
Other Reason for Exam: weakness
EKG- Treatment ONCE
Orthostatic VS- Treatment ONCE
08/04/25 17:07
EKG [Electrocardiogram (*1)] Stat
Reason for Study: Vertigo / Dizzy
Orthostatic Vital Signs As Directed
Orthostatic VS Frequency: Now
08/04/25 17:40
Gabapentin [Neurontin] 300 mg PO NOW STA
Abnormal Lab Results
08/04/25
15:23
RBC 3.83 L 10^6/uL
(4.20-5.40)
Hct 35.9 L %
(37.0-47.0)
MCH 31.6 H pg
(27.0-31.0)
Plt Count 114 L 10^3/uL
(130-400)
MPV 10.5 H fL
(7.4-10.4)
Absolute Lymphs (auto) 0.9 L 10^3/uL
(1.2-3.4)
Immature Gran % 0.6 H %
(0-0.5)
Lymphocytes % 17.6 L %
(20.5-51.1)
Monocytes % 10.2 H %
(1.7-9.3)
Sodium 133 L mmol/L
(135-145)
BUN 21 H mg/dl
(7-17)
Glucose 138 H mg/dl
(70-99)
08/04/25 15:23
08/04/25 15:23
Vital Signs
Initial and Last Documented VS:
Initial Vital Signs
Temp Pulse Resp BP Pulse Ox
97.9 F 63 16 159/62 99
08/04/25 14:24 08/04/25 14:24 08/04/25 14:24 08/04/25 14:24 08/04/25 14:24
Last Documented Vital Signs
Temp Pulse Resp BP Pulse Ox
97.9 F 63 16 159/62 99
08/04/25 14:24 08/04/25 14:24 08/04/25 14:24 08/04/25 14:24 08/04/25 15:02
<Lesli Blomo, DO - Last Filed: 08/04/25 17:42>
Orders/Labs/Results
Orders:
Orders
08/04/25 14:57
Case Management Consult ONCE
Case Management Consult: Discharge Planning
Physical Therapy Consult [Pt Eval And Treat] Urgent
Activity Level: Ambulate
08/04/25 15:23
Basic Metabolic Panel Urgent
Complete Blood Count/With Diff Urgent
08/04/25 17:01
Electrocardiogram (*1) Urgent
Reason for Study: Other
Other Reason for Exam: weakness
EKG- Treatment ONCE
Orthostatic VS- Treatment ONCE
08/04/25 17:07
EKG [Electrocardiogram (*1)] Stat
Reason for Study: Vertigo / Dizzy
Orthostatic Vital Signs As Directed
Orthostatic VS Frequency: Now
08/04/25 17:40
Gabapentin [Neurontin] 300 mg PO NOW STA
Abnormal Lab Results
08/04/25
15:23
RBC 3.83 L 10^6/uL
(4.20-5.40)
Hct 35.9 L %
(37.0-47.0)
MCH 31.6 H pg
(27.0-31.0)
Plt Count 114 L 10^3/uL
(130-400)
MPV 10.5 H fL
(7.4-10.4)
Absolute Lymphs (auto) 0.9 L 10^3/uL
(1.2-3.4)
Immature Gran % 0.6 H %
(0-0.5)
Lymphocytes % 17.6 L %
(20.5-51.1)
Monocytes % 10.2 H %
(1.7-9.3)
Sodium 133 L mmol/L
(135-145)
BUN 21 H mg/dl
(7-17)
Glucose 138 H mg/dl
(70-99)
08/04/25 15:23
08/04/25 15:23
Vital Signs
Initial and Last Documented VS:
Initial Vital Signs
Temp Pulse Resp BP Pulse Ox
97.9 F 63 16 159/62 99
08/04/25 14:24 08/04/25 14:24 08/04/25 14:24 08/04/25 14:24 08/04/25 14:24
Last Documented Vital Signs
Temp Pulse Resp BP Pulse Ox
97.9 F 63 16 159/62 99
08/04/25 14:24 08/04/25 14:24 08/04/25 14:24 08/04/25 14:24 08/04/25 15:02
<Richardson Hart PA-C - Last Filed: 08/04/25 16:59>
MDM/Problems Addressed
Differential Diagnosis Includes:
Diabetic neuropathy
PAD
PVD
Claudication
Electrolyte imbalance
Sciatica/Disc herniation
MDM/Problems Addressed:
79-year-old female presenting to the emergency department for evaluation of progression of her chronic neuropathy resulting in multiple falls over the last week. Noted ecchymosis to her bilateral upper extremities appear in various stages of
healing. Hemodynamically stable. Overall doubt any acute or emergent pathologies however I do have concern for patient's frequent falls and potential for further injury. Will obtain labs to evaluate for any electrolyte abnormality as well as
obtain case management and physical therapy consult as I do feel patient would likely benefit from some form of inpatient rehab for further safety.
Chronic conditions affecting care: PVD
Acute Exacerbation and/or Progression of Chronic Illness: PVD
<Richardson Hart PA-C - Last Filed: 08/04/25 16:59>
*Pulse Oximetry
SaO2: 99
Oxygen Mode of Delivery: Room air
Patient hypoxic: no
*Critical Care Note
Total Time (30-74mins, 75-104mins- exclusive of procedures): Not Applicable
Data Reviewed
Review of Other/Old Records Reveals: Labs, Records and Discharge Summary
<Richardson Hart PA-C - Last Filed: 08/04/25 16:59>
Patient Management
Discussion with other providers: Hospitalist
Escalation/DeEscalation of care consider admission/obs:
Seen by physical therapy and case management. Patient was able to ambulate slightly but ultimately still does not feel comfortable being discharged home. Case management to arrange for [facility] facility but unable to place patient today so
we will need admission here. Hospitalist team notified.
ED Attending Note
<Richardson Hart PA-C - Last Filed: 08/04/25 16:59>
-
Portions of this chart may have been created with voice recognition software.� Occasional wrong word or��sound alike� substitutions may have occurred due to the inherent limitations of voice recognition software.
<Lesli Bloom DO - Last Filed: 08/04/25 17:42>
ED Attending Note
Patient seen and examined by attending physician: Yes
I performed the substantive portion of visit, reviewed & personally made and approve the management plan that is documented in note by myself or MARCOS.: Yes
I performed a history and physical exam of patient and discussed management with resident, I reviewed resident's note and agree with documented findings and plan of care.: Yes
ED Attending Note:
79-year-old female with history of chronic neuropathy presenting for concern of progression of her chronic neuropathy. Patient notes multiple falls over the past week. Patient notes that she is having a difficult time ambulating around her house,
feels unsteady. She does not feel comfortable going home, requesting her rehab. Denies any acute weakness. Denies fever. Vital signs are significant for mild hypertension.
On exam, no significant swelling or deformity to the lower extremities. Sensation is grossly intact as well as motor. Dopplerable pulses bilaterally. No concern for any neurovascular compromise. No concern for any fracture or malalignment.
Patient does have scattered bruising to the upper extremities, however range of motion intact, no obvious deformity, again no neurovascular compromise. No signs of head injury, and patient denies any head injury from falls. Patient's symptoms
appear to be acute on chronic with no concerning features. No indication for advanced imaging. Case management consulted, reports that they can try to get patient to SNF, however unlikely to do so till Wednesday. Patient would like to proceed with
this plan. Plan for admission for placement.
Discharge Plan
Departure
Patient Disposition: Admit
Date of Disposition: 08/04/25
Time of Disposition: 16:27
Presentation/result/management discussed w/ accepting MD/DO: Hospitalist
Discharge Problem:
Peripheral neuropathy, Multiple falls
Prescriptions:
No Action
amlodipine [Norvasc] 10 mg Tablet
10 mg PO DAILY
ezetimibe [Zetia] 10 mg Tablet
10 mg PO QPM
omega-3 acid ethyl esters [Lovaza] 1 gram Capsule
2 cap PO BID
fenofibrate nanocrystallized [Tricor] 48 mg Tablet
48 mg PO QPM
oxycodone 10 mg Tablet
10 mg PO Q4H PRN (Reason: severe pain)
Patient Comments:
last fill 08/02/25 #180
Januvia 100 mg Tablet
100 mg PO DAILY
insulin glargine [Lantus Solostar U-100 Insulin] 100 unit/mL (3 mL) Insulin Pen
40 - 60 unit SC HS
gabapentin 100 mg capsule
100 mg PO HSPRN PRN (Reason: leg pain)
clopidogrel 75 mg Tablet
75 mg PO DAILY Qty: 90 0RF
aspirin 81 mg capsule
81 mg PO DAILY Qty: 90 0RF
losartan 50 mg tablet
50 mg PO BID
celecoxib 200 mg capsule
200 mg PO BIDPRN PRN (Reason: inflammation)
ascorbic acid (vitamin C) 500 mg Tablet
500 mg PO DAILY
nystatin 100,000 unit/gram powder
1 applic TOPICAL BID
atenolol 50 mg tablet
50 mg PO DAILY
docusate sodium 100 mg Tablet
200 mg PO DAILY
insulin aspart U-100 [Novolog FlexPen U-100 Insulin] 100 unit/mL (3 mL) insulin pen
1 sliding scale dose SC AC
cholecalciferol (vitamin D3) 25 mcg (1,000 unit) Tablet
25 mcg PO DAILY
hydrochlorothiazide 12.5 mg tablet
25 mg PO DAILY
Systane Complete 0.6 % Drops
1 drp OPHTHALMIC (EYE) DAILY PRN (Reason: dry eyes)
PreserVision AREDS-2 250-90-40-1 mg Capsule
1 tab PO BID
magnesium oxide 400 mg magnesium Tablet
400 mg PO DAILY
Referrals:
Rian Goff Jr., DO [Family Provider, Family Practice]
Interventions
Interventions:
*General Assessment Last Done: 08/04/25 14:56
*Neglect/Abuse Screening Last Done: 08/04/25 14:56
*ED- Fall Risk Assessment Last Done: 08/04/25 14:56
*ED COVID-19 Vaccine History Last Done: 08/04/25 14:30
*ED Influenza Vaccine History Last Done: 08/04/25 14:30
ED-Musculoskeletal Assessment Last Done: 08/04/25 14:48
ED- Neurological Assessment Last Done: 08/04/25 14:48
ED-Peripheral Vascular Assessment Last Done: 08/04/25 14:46
ED-Skin Assessment Last Done: 08/04/25 14:48
Discharge Date and Time
Print Language: YAKUT
[2025-08-04 15:39] LABS: Hematocrit 35.9 % (37.0-47.0); Hemoglobin 12.1 g/dL (12.0-16.0); Mean Corp Hgb Conc. 33.7 g/dL (33.0-37.0); Mean Corpuscular Volume 93.7 fL (81.0-99.0); Nucleated Red Blood Cells % 0 %; Platelet Count 114 10^3/uL (130-400); Red Cell Dist. Width 13.4 % (11.5-14.5)
[2025-08-04 16:05] LABS: Blood Urea Nitrogen 21 mg/dl (7-17); Calcium 9.3 mg/dl (8.4-10.2); Carbon Dioxide 29 mmol/L (22-30); Chloride 101 mmol/L (98-107); Estimated Creatinine Clearance 57 ml/min; Glucose 138 mg/dl (70-99); Sodium 133 mmol/L (135-145); eGFR > 60.00
--- NOTE | 2025-08-04 16:27 | EDCM ---
Received consult, met with pt and family bedside in ED. Pt lives alone in 2 SH, 1 [address] from garage, first floor half bath. Full flight to second floor bedroom and full bath.
Independent in ADLs, personal care and ambulation at baseline. Uses RW, has had several recent falls and does not feel safe at home.
Pt would like to go to SNF for rehab, has been to [facility] and [facility] in the past.
Recent hx with [facility] for PT/OT discharged in June.
Discussed possible observation admission and also discussed Medicare requirement of 3 inpatient overnights to pay for SNF. Pt would be able to privately pay for SNF if needed.
I encouraged pt's daughter to look at Medicare.gov site and choose several facilities we can make referrals to.
PCP: Rian Goff
Pharmacy: [facility]
Anticipate discharge to SNF, CM will continue to follow for all discharge planning needs.
--- NOTE | 2025-08-04 16:30 | HPS.HSE ---
Addendum entered and electronically signed by Masha Delacruz MD 08/04/25 19:18:
This is an addendum to the H&P written by Bennett Andre on 08/04/2025. �Patient seen and examined independently with resident.
79-year-old female past medical history of hypertension, hyperlipidemia, diabetes, peripheral arterial disease s/p angioplasty of right lower extremity, disk herniation, sciatica, osteoporosis,� presenting for worsening of chronic intermittent
paresthesia of lower extremities. �2 falls recently. �No focal weakness.
Vital signs unremarkable.
Labs show platelets of 114.
Patient with worsening diabetic peripheral neuropathy resulting in falls. Patient not taking gabapentin so recommending 100 mg Gabapentin at night.� �PT recommending SNF and case management consulted.�
Original Note:
Family Physician
-
Family Physician: Rian Goff
Chief Complaint
-
Lower extremity numbness
History of Present Illness
79-year-old female with past medical history of hypertension, hyperlipidemia, IDDM, PAD, sciatica/disc herniation, osteoporosis, right nephrectomy with vertebral compression fractures, presenting to the ER for evaluation of bilateral lower extremity
numbness. Patient reports that she fell twice in the past 10 days because of her neuropathy. Denies any head strike, syncopal episodes, headaches, chest pain, cough, SOB, abdominal pain, bladder/bowel disturbances, fever/chills. No episodes of
confusion as reported by her daughter. Patient uses walker/rollator. Patient underwent angioplasty of distal superficial femoral artery on 01/30/2025.
ED course�hemoglobin 12.1, platelet count 114, sodium 133, BUN/creatinine�21/0.8, glucose 138.
Vitals stable.
Medical History
Past Medical History
Past Medical History: Reports Other (Hypertension, hypercholesterolemia, IDDM, osteoporosis, spinal fractures, peripheral arterial disease)
Past Surgical History: Reports Other (Right nephrectomy, bilateral oophorectomy)
Social History
Tobacco: Non-smoker
Alcohol: None
Drug: None
Personal: Single
Living: Alone
Employment: Not Employed
Family History
Family History: Not pertinent
Allergies / Home Medications
Allergies reflects when Allergies were last updated in [facility].
Home Medications with original date entered in Flare Code
Allergy/Medication List:
Allergies
Allergy/AdvReac Type Severity Reaction Status Date / Time
clindamycin Allergy Unknown Verified 08/04/25 14:30
Penicillins Allergy Unknown Verified 08/04/25 14:30
Home Medications
Novolog FlexPen U-100 Insulin 0 unit SC BID SLIDING SCALE 01/10/25
amlodipine 10 mg tablet (Norvasc) 10 mg PO DAILY 01/10/25
atenolol 100 mg tablet 200 mg PO BID 01/10/25
celecoxib 100 mg capsule (Celebrex) 100 mg PO BID 01/10/25
ezetimibe 10 mg tablet (Zetia) 10 mg PO HS 01/10/25
fenofibrate nanocrystallized 48 mg tablet (Tricor) 48 mg PO HS 01/10/25
irbesartan 150 mg-hydrochlorothiazide 12.5 mg tablet (Avalide) 2 tab PO DAILY 01/10/25
lisinopril 2.5 mg tablet 2.5 mg PO DAILY 01/10/25
omega-3 acid ethyl esters 1 gram capsule (Lovaza) 2 cap PO BID 01/10/25
oxycodone 10 mg tablet 10 mg PO Q4H PRN pain 01/10/25
gabapentin 100 mg capsule 100 mg PO HS 01/22/25
insulin glargine 100 unit/mL (3 mL) subcutaneous pen (Lantus Solostar U-100 Insulin) 40 - 60 unit SC HS sliding scale 01/22/25
sitagliptin phosphate 100 mg tablet (Januvia) 100 mg PO DAILY 01/22/25
aspirin 81 mg capsule 81 mg PO DAILY #90 caps 01/30/25
clopidogrel 75 mg tablet 75 mg PO DAILY #90 tabs 01/30/25
Review of Systems
-
A 12 point ROS was completed and negative except as noted: Yes
Physical Exam
Vital Signs
Vital Signs
Temp Pulse Resp BP Pulse Ox
97.9 F 63 16 159/62 99
08/04/25 14:24 08/04/25 14:24 08/04/25 14:24 08/04/25 14:24 08/04/25 15:02
Physical Exam
General: No Apparent Distress
HEENT: NormoCephalic and Atraumatic
Respiratory: Clear
Cardiac: S1/S2 and Regular Rhythm
GI: Soft, Non Tender, Non Distended and Normal Bowel Sounds
Musculoskeletal: Other (Sensory neuropathy of the foot right >left. Peripheral pulses normal, good capillary refill. Strength 5/5 bilateral lower extremities.)
Skin: Warm and Dry
Neuro: Awake, Alert, Oriented and AO x 3
Psych: Calm
Laboratory Results
-
08/04/25 15:23
08/04/25 15:23
Laboratory Results
Total Bilirubin Cancelled 08/04/25 15:23
AST Cancelled 08/04/25 15:23
ALT Cancelled 08/04/25 15:23
Alkaline Phosphatase Cancelled 08/04/25 15:23
Impression/Plan
-
IMPRESSION:
79-year-old female with past medical history of hypertension, hyperlipidemia, IDDM, PAD, sciatica/disc herniation, osteoporosis, right nephrectomy with vertebral compression fractures, presenting to the ER for evaluation of bilateral lower extremity
numbness.
PLAN:
#Sensory neuropathy
#Multiple falls
Likely due to diabetes mellitus, contributing to the falls.
Patient has not been taking gabapentin at home
Restart gabapentin
Check orthostatics
Check EKG.
PT/OT consult�ordered by ER�recommended SNF placement
Case management consult
#IDDM
Continue home insulin
Continue Sepuvia
Add SSI
#Hyperlipidemia
Continue ezetimibe
Continue fenofibrate
#Hypertension
Continue atenolol
Continue amlodipine
Continue Avalide
Continue lisinopril
#PAD
Continue aspirin
Continue clopidogrel
#Chronic low back pain
Oxycodone as needed
DVT prophylaxis�SCDs
Diet�low-cholesterol
Full code
[2025-08-04] MEDS: NEURONTIN 300 MG PO (17:58)
[2025-08-04 21:38] LABS: Glucose - Point of Care 132 mg/dl (70-99)
[2025-08-04] MEDS: ZETIA 10 MG PO (22:00)
[2025-08-04] MEDS: NEURONTIN 100 MG PO (22:00)
[2025-08-04] MEDS: TRICOR 48 MG PO (22:01)
[2025-08-04] MEDS: LANTUS 0.4 UNITS SC (22:02)
[2025-08-04] MEDS: DESENEX/MITRAZOL/ZEASORB 1 APPLIC TOPICAL (22:08)
[2025-08-04] MEDS: COZAAR PO (22:16)
[2025-08-04] MEDS: COZAAR 25 MG PO (22:22)
[2025-08-05 07:28] VITALS: BP 148/61
[2025-08-05 07:34] LABS: Hematocrit 35.9 % (37.0-47.0); Hemoglobin 11.9 g/dL (12.0-16.0); Mean Corp Hgb Conc. 33.1 g/dL (33.0-37.0); Mean Corpuscular Volume 96.0 fL (81.0-99.0); Platelet Count 121 10^3/uL (130-400); Red Cell Dist. Width 13.6 % (11.5-14.5)
[2025-08-05 08:03] LABS: ALT (SGPT) 25 U/L (0-35); AST (SGOT) 30 U/L (14-36); Albumin 3.7 g/dl (3.5-5.0); Alkaline Phosphatase 44 U/L (38-126); Blood Urea Nitrogen 20 mg/dl (7-17); Calcium 9.2 mg/dl (8.4-10.2); Carbon Dioxide 29 mmol/L (22-30); Chloride 104 mmol/L (98-107); Estimated Creatinine Clearance 65 ml/min; Glucose 47 mg/dl (70-99); Potassium 3.4 mmol/L (3.5-5.1); Sodium 136 mmol/L (135-145); Total Protein 6.7 g/dl (6.3-8.2); eGFR > 60.00
[2025-08-05 08:06] LABS: Glucose - Point of Care 54 mg/dl (70-99)
[2025-08-05 08:27] LABS: Glucose - Point of Care 89 mg/dl (70-99)
[2025-08-05] MEDS: NOVOLOG FLEXPEN-LOW RESISTANCE SC (09:21)
[2025-08-05] MEDS: JANUVIA PO (09:21)
[2025-08-05] MEDS: MAGNESIUM OXIDE 400 MG PO (09:21)
[2025-08-05] MEDS: NORVASC 10 MG PO (09:22)
[2025-08-05] MEDS: ASPIR LOW (ENTERIC COATED) 81 MG PO (09:22)
[2025-08-05] MEDS: PLAVIX 75 MG PO (09:22)
[2025-08-05] MEDS: COZAAR 50 MG PO ×2 (09:22→19:32)
[2025-08-05] MEDS: TENORMIN 50 MG PO (09:22)
[2025-08-05] MEDS: COLACE 200 MG PO (09:24)
[2025-08-05] MEDS: VITAMIN C 500 MG PO (09:24)
[2025-08-05] MEDS: DESENEX/MITRAZOL/ZEASORB 1 APPLIC TOPICAL ×2 (09:24→19:40)
[2025-08-05] MEDS: ORETIC 25 MG PO (09:24)
[2025-08-05] MEDS: VITAMIN D3 (cholecalciferol) 25 MCG PO (09:25)
--- NOTE | 2025-08-05 09:36 | W.PN.HOSP.TC ---
Today's Communication/Plan
-
Neuro eval
decrease insulin
PT/OT
CM for STR
check TSH
Assessment / Plan
Assessment / Plan
79yo F with PMHX of DM, amvbulatory deficiency, chronic back pain, CAD, HTN, HLD, PAD came with c/o 4-5 days of worsening numbness and tingling in both LE. She had that before, but now the symptoms becamemore pronounced. Bedside - sensation in both
legs preserved, no significant leg pain, chronic R dropped foot present. In the hospital non-complaint with gabapentin and hypoglycemic. Also had few episodes of fall without LOC over past fewweekks, most recent one 1 week ago
A/P:
#b/l LE paresthesia
#chronic RLE foot drop - started few month before
most likely diabetic neuropathy
no focal motor deficit except of inability to dorsiflex R foot found.
Neurology consult
Neurontin nightly
check B12, folate, TSH
PT/OT
#Falls w/o LOC
with chronic ambulatory dysfunction, using walker
exacerbated by impaired proprioception with neuropathy
PT/OT, family concerned that patient cannot continue to live alone to ambulatory dysfunction, so want to attempt STR for confidence and strength build
#DM with circulatory and neuropathic complications
#Hypoglycemia
check HgbA!c
decrease basal insulin
cont Accuchecks, insulin SS, DM diet
Hold Januvia
#chronic mild thrombocytopenia
at least since 2021
outpatient monitoring
#Essential HTN
#PAD
#HLD
#Chronic back pain
cont home meds
no LE pain or toes discoloration concerning for acute limb ischemia
DVT ppx hep
Full code
I have spent at least 55min reviewing chart, test results, communication with consultants, discussed with daughter in details and providing direct patient care
Anticipated Discharge: 24 - 48 hours
Subjective/Interval History
-
Date of Service: August 05, 2025
Objective Data
-
Labs:
Laboratory Results
08/05/25
06:59
WBC 5.9
Hgb 11.9 L
Hct 35.9 L
Plt Count 121 L
Sodium 136
Potassium 3.4 L
Chloride 104
Carbon Dioxide 29
BUN 20 H
Creatinine 0.7
Glucose 47 L*
Calcium 9.2
Total Bilirubin 0.8
AST 30
ALT 25
Alkaline Phosphatase 44
Vital Signs:
Vital Signs
Temp Pulse Resp BP Pulse Ox
98.2 F 54 17 148/61 96
08/05/25 07:28 08/05/25 07:28 08/05/25 07:28 08/05/25 07:28 08/05/25 07:28
Review of Systems
-
History Source: Patient
All other systems: Reviewed and negative
Neuro: Reports Numbness (b/l LE) and Other
Physical Exam
-
General: No Apparent Distress and Comfortable
Respiratory: Clear to Auscultation
Cardiac: Regular Rhythm
GI: Soft, Nontender and Nondistended
Neuro: Awake, Alert, Oriented, AO x 3 and Other (RLE cannot dorsiflex foot)
Psych: Calm
[2025-08-05 10:55] LABS: Glycohemoglobin (HgbA1c) 6.4 % (4.0-5.9)
[2025-08-05] MEDS: ROXICODONE 10 MG PO ×3 (11:02→23:32)
[2025-08-05 11:27] LABS: Folate 14.3 ng/ml (2.76-20); Vitamin B12 611 pg/ml (239-931)
--- NOTE | 2025-08-05 11:43 | CON.NEURO4 ---
Consultation - Neurology 4
-
CONSULTING PHYSICIAN: Dr. Chris Eduardo
REFERRING PHYSICIAN: Dr. Melquiades Hanley
DICTATED BY: Dr. Chris Eduardo
DATE/TIME OF REQUEST: 08/05/2025
DATE/TIME OF CONSULTATION: 08/05/2025
Reason for Consultation: Possible Peripheral Neuropathy
ASSESSMENT AND PLAN
The patient is an 79 years old female, with a past medical history of DM x 20 years, CAD, HTN and hyperlipidemia, who presented to the hospital for evaluation of 'pain' in her feet extending to the mid-arreaga area bilaterally. According to the patient
the pain in worse at night and the pain decreases as she begins to move around in the morning and the pain resolves in the later part of the day. The patient was given Gabapentin last night that helped to relieve pain and also she was able to sleep
well. She denies any weakness of arms or legs and she denies any breathing difficulty.
. The patient likely has neuropathic pain 2/2 peripheral neuropathy 2/2 long-standing DM for about 20 years,
. Recommend Gabapentin 100 mg QHS, to be taken on as needed basis.
. EMG/NCS to rule out peripheral neuropathy.
. Continue current medications.
History of Present Illness:
The patient is an 79 years old female, wit a past medical history of DM x 20 years, who presented to the ER for evaluation of 'pain' in her feet and lower legs, bilaterally, for about 4 days. According to the patient the pain is worse at night and
the pain decreases as she begins to move around in the morning and the pain disappears in the evening. She has tried Gabapentin in the past with relief of this pain, and she was also given Gabapentin last night that helped her to get relief from
pain and she was also able to sleep well.
Past Medical History: IDDM, HTN, CAD, hyperlipidemia
Review of Systems:
The patient denies headache, dizziness, nausea, vomiting, shortness of breath, fever or chills.
Neurologic Examination:
Alert and oriented x 3,
Speech is clear,
Cranial nerves II-XII are grossly intact,
The motor strength is grossly 5/5 bilaterally,
The sensations are decreased distally in the lower extremities,
There was no limb ataxia seen.
Vital Signs and Labs
-
Vital Signs and Labs:
Vital Signs
Temp Pulse Resp BP Pulse Ox
36.6 C 81 17 132/70 96
08/05/25 15:10 08/05/25 15:10 08/05/25 15:10 08/05/25 15:10 08/05/25 15:10
Lab Results
08/05/25 06:59
08/05/25 06:59
Sodium 136 mmol/L (135-145) 08/05/25 06:59
Potassium 3.4 mmol/L (3.5-5.1) L 08/05/25 06:59
BUN 20 mg/dl (7-17) H 08/05/25 06:59
Glucose 47 mg/dl (70-99) L* 08/05/25 06:59
Calcium 9.2 mg/dl (8.4-10.2) 08/05/25 06:59
Vitamin B12 611 pg/ml (239-931) 08/05/25 06:59
Medications
-
Active Medications
Generic Name Dose Route Start Last Admin
Trade Name Freq PRN Reason Stop Dose Admin
Amlodipine Besylate 10 mg 08/05/25 08:00 08/05/25 09:22
Amlodipine 10 Mg Tablet PO 09/02/25 07:59 10 mg
DAILY KEVIN Administration
Artificial Tears 1 drops 08/04/25 21:15
Artificial Tears Pf (Refresh) 10 Drop Droperette OPHTH 09/01/25 21:14
DAILY PRN
dry eyes
Ascorbic Acid 500 mg 08/05/25 08:00 08/05/25 09:24
Ascorbic Acid 500 Mg Tablet PO 09/02/25 07:59 500 mg
DAILY KEVIN Administration
Aspirin 81 mg 08/05/25 08:00 08/05/25 09:22
Aspirin 81 Mg (Enteric Coated) Tablet PO 09/02/25 07:59 81 mg
DAILY KEVIN Administration
Atenolol 50 mg 08/05/25 08:00 08/05/25 09:22
Atenolol 50 Mg Tablet PO 09/02/25 07:59 50 mg
DAILY KEVIN Administration
Bisacodyl 10 mg 08/04/25 20:14
Bisacodyl 10 Mg Rectal Suppository RECTAL 09/01/25 20:13
[id number] PRN
constipation
Cholecalciferol 25 mcg 08/05/25 08:00 08/05/25 09:25
Cholecalciferol (Vitamin D3) 25 Mcg Tablet (1,000 Units) PO 09/02/25 07:59 25 mcg
DAILY KEVIN Administration
Clopidogrel Bisulfate 75 mg 08/05/25 08:00 08/05/25 09:22
Clopidogrel 75 Mg Tablet PO 09/02/25 07:59 75 mg
DAILY KEVIN Administration
Dextrose 12.5 grams 08/04/25 22:00
Dextrose 50% (0.5 Grams/Ml) 50 Ml Syringe IV 09/01/25 21:59
[id number] PRN
hypoglycemia
Protocol
Docusate Sodium 200 mg 08/05/25 08:00 08/05/25 09:24
Docusate Sodium 100 Mg Capsule PO 09/02/25 07:59 200 mg
DAILY KEVIN Administration
Ezetimibe 10 mg 08/04/25 20:14 08/04/25 22:00
Ezetimibe (Zetia) 10 Mg Tablet PO 09/01/25 20:13 10 mg
QPM KEVIN Administration
Fenofibrate 48 mg 08/04/25 20:14 08/04/25 22:01
Fenofibrate 48 Mg Tablet PO 09/01/25 20:13 48 mg
QPM KEVIN Administration
Gabapentin 100 mg 08/04/25 22:00 08/04/25 22:00
Gabapentin 100 Mg Capsule PO 09/01/25 21:59 100 mg
HS KEVIN Administration
Glucagon 1 mg 08/04/25 22:00
Glucagon 1 Mg Vial IM 09/01/25 21:59
PRN PRN
hypoglycemia - no IV access
Protocol
Heparin Sodium 5,000 units 08/05/25 16:00
Heparin 5,000 Units/Ml 1 Ml Vial SC 09/02/25 15:59
Q8 KEVIN
Hydrochlorothiazide 25 mg 08/05/25 08:00 08/05/25 09:24
Hydrochlorothiazide 25 Mg Tablet PO 09/02/25 07:59 25 mg
DAILY KEVIN Administration
Insulin Glargine 25 units/ 0.25 mls @ 0 mls/hr 08/05/25 08:35
Device SC 09/01/25 21:59
HS KEVIN
As Directed
Insulin Aspart 0 units 08/05/25 07:30 08/05/25 13:11
Insulin Aspart Low Resistance 300 Units/3 Ml Pen.Injctr SC 09/02/25 07:29 3 units
AC KEVIN Administration
Protocol
Losartan Potassium 50 mg 08/04/25 20:14 08/05/25 09:22
Losartan 50 Mg Tablet PO 09/01/25 20:13 50 mg
BID KEVIN Administration
Magnesium Oxide 400 mg 08/05/25 08:00 08/05/25 09:21
Magnesium Oxide 400 Mg Tablet PO 09/02/25 07:59 400 mg
DAILY KEVIN Administration
Miconazole Nitrate 0 applic 08/04/25 22:00 08/05/25 09:24
Miconazole Powder Bottle TOPICAL 09/01/25 21:59 1 applic
BID KEVIN Administration
Non-Formulary Medication 2 cap 08/04/25 20:14
Cambridge-3 Acid Ethyl Esters [Lovaza] PO 09/01/25 20:13
BID KEVIN
Oxycodone HCl 10 mg 08/04/25 22:00 08/05/25 11:02
Oxycodone 10 Mg Regular Release Tablet PO 08/18/25 21:59 10 mg
Q4H PRN Administration
severe pain
Polyethylene Glycol 17 grams 08/04/25 20:14
Polyethylene Glycol Powder 17 Grams Packet PO 09/01/25 20:13
DAILYPRN PRN
constipation
Senna/Docusate Sodium 1 tablet 08/04/25 20:14
Docusate W/Senna (Izabella-Colace) Tablet PO 09/01/25 20:13
BIDPRN PRN
constipation
Sitagliptin Phosphate 100 mg 08/05/25 08:00 08/05/25 09:21
Sitagliptin (Januvia) 100 Mg Tablet PO 09/02/25 07:59 Not Given
DAILY KEVIN
Sodium Chloride 0 flush 08/05/25 09:00
Sodium Chloride 0.9% (Flush) Syringe IV 09/02/25 08:59
PER PROTOCOL KEVIN
Vitamin C/Vitamin E 1 cap 08/05/25 22:00
Vit C/Vit E/Lutein/Min/Cambridge-3 (Ocuvite) Capsule PO 09/02/25 21:59
BID KEVIN
Home Medications
�Medication �Instructions �Recorded
amlodipine 10 mg tablet (Norvasc) 10 mg PO DAILY Blood Pressure 01/10/25
ezetimibe 10 mg tablet (Zetia) 10 mg PO QPM High Cholesterol 01/10/25
fenofibrate nanocrystallized 48 mg 48 mg PO QPM HIGH TRIGLYCERIDES 01/10/25
tablet (Tricor)
omega-3 acid ethyl esters 1 gram 2 cap PO BID Supplement 01/10/25
capsule (Lovaza)
oxycodone 10 mg tablet 10 mg PO Q4H PRN severe pain 01/10/25
gabapentin 100 mg capsule 100 mg PO HSPRN PRN leg pain 01/22/25
insulin glargine 100 unit/mL (3 40 - 60 unit SC HS sliding scale 01/22/25
mL) subcutaneous pen (Lantus
Solostar U-100 Insulin)
sitagliptin phosphate 100 mg 100 mg PO DAILY Diabetes 01/22/25
tablet (Januvia)
aspirin 81 mg capsule 81 mg PO DAILY #90 caps 01/30/25
clopidogrel 75 mg tablet 75 mg PO DAILY #90 tabs 01/30/25
ascorbic acid (vitamin C) 500 mg 500 mg PO DAILY Supplement 08/04/25
tablet
atenolol 50 mg tablet 50 mg PO DAILY Blood Pressure 08/04/25
celecoxib 200 mg capsule 200 mg PO BIDPRN PRN inflammation 08/04/25
cholecalciferol (vitamin D3) 25 25 mcg PO DAILY Supplement 08/04/25
mcg (1,000 unit) tablet
docusate sodium 100 mg tablet 200 mg PO DAILY STOOL SOFTENER 08/04/25
hydrochlorothiazide 12.5 mg tablet 25 mg PO DAILY Fluid 08/04/25
Retention/Swelling
insulin aspart U-100 100 unit/mL 1 sliding scale dose SC AC Diabetes 08/04/25
(3 mL) subcutaneous pen (Novolog
FlexPen U-100 Insulin aspart)
losartan 50 mg tablet 50 mg PO BID Blood Pressure 08/04/25
magnesium oxide 400 mg PO DAILY Supplement 08/04/25
nystatin 100,000 unit/gram topical 1 applic topical BID skin folds 08/04/25
powder
propylene glycol 0.6 % eye drops 1 drp ophthalmic (eye) DAILY PRN 08/04/25
(Systane Complete) dry eyes
vit C 250 mg-vit E 90 mg-zinc 40 1 tab PO BID Supplement 08/04/25
mg-copper 1 [id number]
capsule (PreserVision AREDS-2)
--- NOTE | 2025-08-05 11:46 | CON.NEURO4 ---
Consultation - Neurology 4
-
CONSULTING PHYSICIAN:
REFERRING PHYSICIAN:
DICTATED BY:
DATE/TIME OF REQUEST:
DATE/TIME OF CONSULTATION:
Reason for Consultation:
History of Present Illness:
This is a (age) year old (left/right) handed (male/female) who has presented to the hospital with (chief complaint). Patient's symptoms began (time) ago, when (describe).
- For stroke patients please mention last known well time.
- Describe associated symptoms, if any. Describe any treatment taken and intervention made.
- Describe the current status of symptoms.
- Describe if patient is compliant with current medications - name the medications and follow up with the physician.
- Describe if patient has had any similar symptoms in the past.
- For stroke patients, mention if patient has had a prior stroke and if there are any residual deficits.
- If the history has been obtained from sources other than the patient, mention 'this history has been contributed to by'
and name the source: family/medical record/[place] [facility]/caregiver/nursing ect.
Past Medical History:
Surgical History:
Family History:
Social History:
Allergies:
Home Medications:
Review of Symptoms:
Patient denies any fever, headache, chest pain, shortness of breath, GI or symptoms.
�Per the HPI.�All systems are reviewed negative except above.
�- Remove any of these problems that patient may have complained about in the HPI.
�- If patient is unresponsive, intubated or demented, say 'Per the HPI. I am unable to obtain a complete review of systems�because of patient's inability to provide history.'
Vital Signs:
The patient has a blood pressure of ( ) , heart rate ( ) , temperature ( ) , respiratory rate ( ) and a pulse ox of ( ) on
(room air / oxygen by nasal cannula / ventilator).
Physical Exam:
The patient is afebrile, heart sounds S1 and S2 are (regular / irregular), and chest is clear to auscultation bilaterally.
- If not clear, describe.
NIH Stroke Scale (if applicable):
I performed the NIH stroke scale on the patient on (date & time). The patient scored ( ) points on the NIH stroke scale assessment, which were assigned as follows:
Neurologic Examination:
The patient is awake, alert and oriented x 3. (He/She) is able to follow commands and answer questions appropriately. There is no aphasia or dysarthria. On cranial nerve assessment, pupils are 3 mm bilateral, round and reactive to light and
accommodation. Visual mcmahan are full. Extraocular movements are intact. Facial sensations are intact and bilaterally symmetrical, there is no facial asymmetry. Hearing is intact bilaterally to normal conversation volume. Tongue palate and uvula
are midline. Sternocleidomastoid strengths are full bilaterally. Motor strengths are 5/5 bilateral upper and lower extremities on medical research [place] scale. There is no drift or involuntary movement noted. Deep tendon reflexes are 2+ bilateral
upper and lower extremities and Babinski is absent bilaterally. Sensations of pain, touch, temperature and vibration are intact and bilaterally symmetrical. There was no extinction noted on double simultaneous stimulation. Coordination is intact by
finger to nose bilaterally.
Lab Results:
Neuro Imaging:
Impression:
(Mr. / Ms.) DAHIANA CHACON is a 79 year old F who has presented to the hospital with (symptoms/chief complaint).
Differentials for the patient's presentation include:
1.
2.
3.
4.
Patient has the following risk factors for their symptoms:
IV Tenecteplase/IAT candidacy
Recommendations:
1.
2.
3.
Discussed patient care with:
[2025-08-05 12:35] LABS: Glucose - Point of Care 279 mg/dl (70-99)
--- NOTE | 2025-08-05 13:00 | CM ---
IA completed on patient . Pt is alert awake sometimes confused. She was living alone in a 2 story home with 1 step to enter and sleeps on first floor. She was independent at home. She uses a walker. PT indicated SNF need.Referral placed in care port.
She has had [facility] and [facility] hx
Pharmacy [facility]
PCP Dr Goff
PLAN To Snf after located
[2025-08-05] MEDS: NOVOLOG FLEXPEN-LOW RESISTANCE 3 UNITS SC (13:11)
[2025-08-05 13:30] VITALS: BP 128/60
[2025-08-05 13:40] VITALS: BP 128/60
[2025-08-05 15:10] VITALS: BP 132/70
[2025-08-05 16:36] LABS: Glucose - Point of Care 305 mg/dl (70-99)
[2025-08-05] MEDS: NOVOLOG FLEXPEN-LOW RESISTANCE 4 UNITS SC (17:17)
[2025-08-05] MEDS: HEPARIN 5000 UNITS SC ×2 (17:17→23:19)
[2025-08-05] MEDS: ZETIA 10 MG PO (17:18)
[2025-08-05] MEDS: TRICOR 48 MG PO (17:20)
[2025-08-05 21:15] LABS: Glucose - Point of Care 227 mg/dl (70-99)
[2025-08-05] MEDS: LANTUS 0.25 UNITS SC (21:15)
[2025-08-05] MEDS: OCUVITE SOFTGEL 1 CAP PO (21:15)
[2025-08-05] MEDS: NEURONTIN 100 MG PO (21:15)
[2025-08-05 23:00] VITALS: BP 143/61
[2025-08-06 07:12] VITALS: BP 145/68
[2025-08-06 07:26] LABS: Glucose - Point of Care 130 mg/dl (70-99)
[2025-08-06] MEDS: NOVOLOG FLEXPEN-LOW RESISTANCE SC (07:33)
[2025-08-06] MEDS: OCUVITE SOFTGEL 1 CAP PO ×2 (08:17→21:35)
[2025-08-06] MEDS: VITAMIN C 500 MG PO (08:17)
[2025-08-06] MEDS: PLAVIX 75 MG PO (08:17)
[2025-08-06] MEDS: VITAMIN D3 (cholecalciferol) 25 MCG PO (08:17)
[2025-08-06] MEDS: ASPIR LOW (ENTERIC COATED) 81 MG PO (08:17)
[2025-08-06] MEDS: COZAAR 50 MG PO ×2 (08:17→21:31)
[2025-08-06] MEDS: JANUVIA 100 MG PO (08:17)
[2025-08-06] MEDS: TENORMIN 50 MG PO (08:17)
[2025-08-06] MEDS: COLACE 200 MG PO (08:17)
[2025-08-06] MEDS: DESENEX/MITRAZOL/ZEASORB 1 APPLIC TOPICAL ×2 (08:18→21:37)
[2025-08-06] MEDS: MAGNESIUM OXIDE 400 MG PO (08:18)
[2025-08-06] MEDS: NORVASC 10 MG PO (08:18)
[2025-08-06] MEDS: HEPARIN 5000 UNITS SC ×2 (08:18→17:34)
[2025-08-06] MEDS: ORETIC 25 MG PO (08:18)
--- NOTE | 2025-08-06 09:14 | CM ---
Addendum entered by Joan Jansen 08/06/25 11:11:
Alyssa request 11am transport tomorrow-rn community aware
Addendum entered by Joan Jansen 08/06/25 10:41:
Alyssa from [facility] accepted - bed available tomorrow
will need COVID test ordered- TT hospitalist
IMM reviewed with daughter Astrid
plan: [facility] 08/07
Report #: [id number]
Fax #: [phone]
transport forms on chart
Original Note:
PT rec SNF
Spoke with daughter Astrid regarding options
prefer referrals to [facility] ([facility]) & [facility]
referrals placed in careport
PLAN: SNF, pending bed availability when stable
[2025-08-06 10:04] LABS: Hematocrit 37.1 % (37.0-47.0); Hemoglobin 12.6 g/dL (12.0-16.0); Mean Corp Hgb Conc. 34.0 g/dL (33.0-37.0); Mean Corpuscular Volume 94.4 fL (81.0-99.0); Nucleated Red Blood Cells % 0 %; Platelet Count 115 10^3/uL (130-400); Red Cell Dist. Width 13.3 % (11.5-14.5)
[2025-08-06 10:30] LABS: Blood Urea Nitrogen 18 mg/dl (7-17); Calcium 9.4 mg/dl (8.4-10.2); Carbon Dioxide 28 mmol/L (22-30); Chloride 101 mmol/L (98-107); Estimated Creatinine Clearance 65 ml/min; Glucose 118 mg/dl (70-99); Potassium 3.5 mmol/L (3.5-5.1); Sodium 134 mmol/L (135-145); eGFR > 60.00
--- NOTE | 2025-08-06 11:44 | W.PN.HOSP.TC ---
Today's Communication/Plan
-
Monitor vital signs and see plan
Per shelter case manager, bed available tomorrow for [facility]
Continue with gabapentin
Titrate insulin, monitor blood sugar
Assessment / Plan
Assessment / Plan
79yo F with PMHX of DM, amvbulatory deficiency, chronic back pain, CAD, HTN, HLD, PAD came with c/o 4-5 days of worsening numbness and tingling in both LE. She had that before, but now the symptoms becamemore pronounced. Bedside - sensation in both
legs preserved, no significant leg pain, chronic R dropped foot present. In the hospital non-complaint with gabapentin and hypoglycemic. Also had few episodes of fall without LOC over past fewweekks, most recent one 1 week ago
A/P:
#b/l LE paresthesia
#chronic RLE foot drop - started few month before
most likely diabetic neuropathy
no focal motor deficit except of inability to dorsiflex R foot found.
Neurology evaluated, EMG outpatient and to follow-up with neurology outpatient.
Neurontin nightly
PT/OT rec SNF. Per shelter case manager plan for [facility] tomorrow
#Falls w/o LOC
with chronic ambulatory dysfunction, using walker
exacerbated by impaired proprioception with neuropathy
PT/OT, family concerned that patient cannot continue to live alone to ambulatory dysfunction, so want to attempt STR for confidence and strength build
#DM with circulatory and neuropathic complications
#Hypoglycemia
check HgbA1c 6.4
decrease basal insulin
cont Accuchecks, insulin SS, DM diet
Hold Januvia
#chronic mild thrombocytopenia
at least since 2021
outpatient monitoring
Mild hyponatremia
monitor
#Essential HTN
#PAD
#HLD
#Chronic back pain
cont home meds
no LE pain or toes discoloration concerning for acute limb ischemia
DVT ppx hep
Full code
General: No Apparent Distress and Comfortable
Respiratory: Clear to Auscultation
Cardiac: Regular Rhythm
GI: Soft, Nontender and Nondistended
Neuro: Awake, Alert, Oriented, AO x 3 and Other (RLE cannot dorsiflex foot)
Psych: Calm
Anticipated Discharge: Within 24 hours
Subjective/Interval History
-
Date of Service: August 06, 2025
does have some neuropathy
Objective Data
-
Labs:
Laboratory Results
08/06/25
09:10
WBC 5.9
Hgb 12.6
Hct 37.1
Plt Count 115 L
Sodium 134 L
Potassium 3.5
Chloride 101
Carbon Dioxide 28
BUN 18 H
Creatinine 0.7
Glucose 118 H
Calcium 9.4
Vital Signs:
Vital Signs
Temp Pulse Resp BP Pulse Ox
97.7 F 60 17 145/68 97
08/06/25 07:12 08/06/25 07:12 08/06/25 07:12 08/06/25 07:12 08/06/25 07:12
I&O
08/05/25 08/06/25 08/07/25
06:59 06:59 06:59
Intake Total 600 / 600
Balance 600 / 600
[2025-08-06 12:03] LABS: Glucose - Point of Care 332 mg/dl (70-99)
[2025-08-06 12:35] LABS: COVID-19 Antigen Negative (Negative)
[2025-08-06] MEDS: NOVOLOG FLEXPEN-LOW RESISTANCE 4 UNITS SC (12:56)
[2025-08-06] MEDS: ROXICODONE 10 MG PO ×3 (13:23→22:46)
--- NOTE | 2025-08-06 14:31 | WOUNDNOTE ---
RIGHT INDEX FINGER
--- NOTE | 2025-08-06 14:43 | WOUNDNOTE ---
LEFT 5th TOE BRUISE, SECOND TOE WOUND
--- NOTE | 2025-08-06 14:44 | WOUNDNOTE ---
LEFT KNEE ABRASION
--- NOTE | 2025-08-06 14:59 | WOUNDNOTE ---
[facility] RN NOTE: Reviewed chart and met with patient. Patient describes recent fall causing left knee abrasion and bruise to left 5 th toe. Patient also has scabs on right index and middle finger from burn that occurred when she was removing a dish out
of the microwave. All wounds were cleaned and Vaseline and silicone foam dressing was applied. Patient also has a dry wound to left 3rd toe and said she follows with [employer] dynamics manager architect for this wound. Per patient, the wound does not both her and there is no
treatment ordered. Sacrum and heels intact and [facility] She reports good appetite. Will confirm orders and sign off. Plan is for SNF.
[2025-08-06 15:24] VITALS: BP 143/69
[2025-08-06 16:32] LABS: Glucose - Point of Care 284 mg/dl (70-99)
[2025-08-06] MEDS: NOVOLOG FLEXPEN-LOW RESISTANCE 3 UNITS SC (17:33)
[2025-08-06] MEDS: TRICOR 48 MG PO (17:34)
[2025-08-06] MEDS: ZETIA 10 MG PO (17:34)
[2025-08-06 21:21] LABS: Glucose - Point of Care 245 mg/dl (70-99)
[2025-08-06] MEDS: LANTUS 0.25 UNITS SC (21:34)
[2025-08-06] MEDS: NEURONTIN 100 MG PO (21:35)
[2025-08-06 23:20] VITALS: BP 149/72
[2025-08-07] MEDS: HEPARIN 5000 UNITS SC ×2 (01:00→08:36)
[2025-08-07 06:47] LABS: Hematocrit 35.3 % (37.0-47.0); Hemoglobin 11.7 g/dL (12.0-16.0); Mean Corp Hgb Conc. 33.1 g/dL (33.0-37.0); Mean Corpuscular Volume 93.1 fL (81.0-99.0); Nucleated Red Blood Cells % 0 %; Platelet Count 96 10^3/uL (130-400); Red Cell Dist. Width 13.3 % (11.5-14.5)
[2025-08-07 06:58] LABS: Blood Urea Nitrogen 18 mg/dl (7-17); Calcium 9.1 mg/dl (8.4-10.2); Carbon Dioxide 29 mmol/L (22-30); Chloride 101 mmol/L (98-107); Estimated Creatinine Clearance 65 ml/min; Glucose 142 mg/dl (70-99); Potassium 3.5 mmol/L (3.5-5.1); Sodium 136 mmol/L (135-145); eGFR > 60.00
[2025-08-07 07:16] VITALS: BP 154/64
[2025-08-07 07:47] LABS: Glucose - Point of Care 138 mg/dl (70-99)
[2025-08-07] MEDS: NOVOLOG FLEXPEN-LOW RESISTANCE SC (07:52)
[2025-08-07 07:55] VITALS: BP 154/64
[2025-08-07] MEDS: MAGNESIUM OXIDE 400 MG PO (08:35)
[2025-08-07] MEDS: VITAMIN C 500 MG PO (08:36)
[2025-08-07] MEDS: VITAMIN D3 (cholecalciferol) 25 MCG PO (08:36)
[2025-08-07] MEDS: PLAVIX 75 MG PO (08:36)
[2025-08-07] MEDS: JANUVIA 100 MG PO (08:36)
[2025-08-07] MEDS: OCUVITE SOFTGEL 1 CAP PO (08:36)
[2025-08-07] MEDS: COZAAR 50 MG PO (08:36)
[2025-08-07] MEDS: NORVASC 10 MG PO (08:36)
[2025-08-07] MEDS: ORETIC 25 MG PO (08:36)
[2025-08-07] MEDS: TENORMIN 50 MG PO (08:36)
[2025-08-07] MEDS: ASPIR LOW (ENTERIC COATED) 81 MG PO (08:36)
[2025-08-07] MEDS: COLACE 200 MG PO (08:36)
[2025-08-07] MEDS: DESENEX/MITRAZOL/ZEASORB 1 APPLIC TOPICAL (08:37)
--- NOTE | 2025-08-07 08:39 | CM ---
patient to discharge today to [facility]
spoke with dtr Astrid and agreeable
IMM yesterday IN CHART
Covid negative
Updated Alyssa liaison-wanted 11am transport
plan: [facility] 08/07
Report #: [id number]
Fax #: [phone]
transport forms on chart, 11am set
[2025-08-07] MEDS: ROXICODONE 10 MG PO (08:40)
--- NOTE | 2025-08-07 09:34 | W.PN.HOSP.TC ---
Today's Communication/Plan
-
monitor vitals
see plan
dc today to SNF
increase gabapentin
time of discharge 37 minutes
Assessment / Plan
Assessment / Plan
79yo F with PMHX of DM, amvbulatory deficiency, chronic back pain, CAD, HTN, HLD, PAD came with c/o 4-5 days of worsening numbness and tingling in both LE. She had that before, but now the symptoms becamemore pronounced. Bedside - sensation in both
legs preserved, no significant leg pain, chronic R dropped foot present. In the hospital non-complaint with gabapentin and hypoglycemic. Also had few episodes of fall without LOC over past fewweekks, most recent one 1 week ago
A/P:
#b/l LE paresthesia
#chronic RLE foot drop - started few month before
most likely diabetic neuropathy
no focal motor deficit except of inability to dorsiflex R foot found.
Neurology evaluated, EMG outpatient and to follow-up with neurology outpatient.
still with some sx during the day; increase gabapentin
PT/OT rec SNF. Per case preparer and liner plan for [facility] tomorrow
#Falls w/o LOC
with chronic ambulatory dysfunction, using walker
exacerbated by impaired proprioception with neuropathy
PT/OT, family concerned that patient cannot continue to live alone to ambulatory dysfunction, so want to attempt STR for confidence and strength build
#DM with circulatory and neuropathic complications
#Hypoglycemia
check HgbA1c 6.4
decrease basal insulin
cont Accuchecks, insulin SS, DM diet
Hold Januvia
#chronic mild thrombocytopenia
at least since 2021
outpatient monitoring
Mild hyponatremia
monitor
#Essential HTN
#PAD
#HLD
#Chronic back pain
cont home meds
no LE pain or toes discoloration concerning for acute limb ischemia
DVT ppx hep
Full code
General: No Apparent Distress and Comfortable
Respiratory: Clear to Auscultation
Cardiac: Regular Rhythm
GI: Soft, Nontender and Nondistended
Neuro: Awake, Alert, Oriented, AO x 3 and Other (RLE cannot dorsiflex foot)
Psych: Calm
Anticipated Discharge: Today
Subjective/Interval History
-
Date of Service: August 07, 2025
denies nausea
Objective Data
-
Labs:
Laboratory Results
08/07/25
06:16
WBC 4.6 L
Hgb 11.7 L
Hct 35.3 L
Plt Count 96 L
Sodium 136
Potassium 3.5
Chloride 101
Carbon Dioxide 29
BUN 18 H
Creatinine 0.7
Glucose 142 H
Calcium 9.1
Vital Signs:
Vital Signs
Temp Pulse Resp BP Pulse Ox
97.9 F 67 17 154/64 96
08/07/25 07:55 08/07/25 07:55 08/07/25 07:55 08/07/25 07:55 08/07/25 07:55
I&O
08/06/25 08/07/25 08/08/25
06:59 06:59 06:59
Intake Total 600 / 600 720 / 720
Balance 600 / 600 720 / 720
--- NOTE | 2025-08-07 09:37 | W.DCSUMMARY ---
Discharge Summary
Discharge Data
Date of Admission: 08/04/25
Date of Discharge: 08/07/25
-
Pending Results: No
Hospital Course
79-year-old female with past medical history of diabetes mellitus, ambulatory dysfunction, chronic back pain, CAD, hypertension, hyperlipidemia, PAD came to the hospital with bilateral paresthesia which was likely thought was secondary to
neuropathy. Patient was seen by neurology and was instructed to follow-up with them outpatient for EMG. Patient was started on gabapentin which improved her symptoms. Patient was also seen by physical therapy who recommended SNF. Once her
symptoms continue to improve, she was then discharged to rehab with instructions to follow-up with all her physicians outpatient.
Discharge Plan
-
Patient Disposition: Detention/SNF
Discharge Diagnosis/Procedures: Ambulatory dysfunction
Bilateral paresthesia
Chronic right lower extremity foot drop
Falls
Diabetes
Condition: Fair
Diet: Diabetic, Carb Controlled
Activity: With assistance and As tolerated
Driving Restrictions: As prior to admission
Bathing Restrictions: None
Activity Restrictions/Additional Instructions:
Wound Care Instructions Right index finger, 3rd digit and left knee abrasion- Clean with normal saline or soap and water and apply Vaseline and dry dressing, such as silicone border foam, daily.
Referrals:
Jose Alberto Aguilera MD [Active, Neurology] - in four to six weeks
Referral Note: EMG/NCS as outpatient
Rian Goff Jr., DO [Family Provider, Family Practice] - in less than 1 week
Prescriptions:
New
sennosides-docusate sodium [Senna Plus] 8.6-50 mg Tablet
1 tab PO BIDPRN PRN (Reason: constipation) Qty: 0 0RF
gabapentin 100 mg Capsule
100 mg PO TID Qty: 0 0RF
Continued
amlodipine [Norvasc] 10 mg Tablet
10 mg PO DAILY
ezetimibe [Zetia] 10 mg Tablet
10 mg PO QPM
omega-3 acid ethyl esters [Lovaza] 1 gram Capsule
2 cap PO BID
fenofibrate nanocrystallized [Tricor] 48 mg Tablet
48 mg PO QPM
Januvia 100 mg Tablet
100 mg PO DAILY
clopidogrel 75 mg Tablet
75 mg PO DAILY Qty: 90 0RF
aspirin 81 mg capsule
81 mg PO DAILY Qty: 90 0RF
losartan 50 mg tablet
50 mg PO BID
celecoxib 200 mg capsule
200 mg PO BIDPRN PRN (Reason: inflammation)
ascorbic acid (vitamin C) 500 mg Tablet
500 mg PO DAILY
nystatin 100,000 unit/gram powder
1 applic TOPICAL BID
atenolol 50 mg tablet
50 mg PO DAILY
docusate sodium 100 mg Tablet
200 mg PO DAILY
insulin aspart U-100 [Novolog FlexPen U-100 Insulin] 100 unit/mL (3 mL) insulin pen
1 sliding scale dose SC AC
cholecalciferol (vitamin D3) 25 mcg (1,000 unit) Tablet
25 mcg PO DAILY
hydrochlorothiazide 12.5 mg tablet
25 mg PO DAILY
Systane Complete 0.6 % Drops
1 drp OPHTHALMIC (EYE) DAILY PRN (Reason: dry eyes)
PreserVision AREDS-2 250-90-40-1 mg Capsule
1 tab PO BID
magnesium oxide 400 mg magnesium Tablet
400 mg PO DAILY
oxycodone 10 mg Tablet
10 mg PO Q4H PRN (Reason: severe pain) Qty: 10 0RF
Changed
insulin glargine [Lantus Solostar U-100 Insulin] 100 unit/mL (3 mL) Insulin Pen
25 unit SC HS Qty: 0 0RF
Discontinued
gabapentin 100 mg capsule
100 mg PO HSPRN PRN (Reason: leg pain)
Discharge Orders:
Discharge Patient (As Directed); Ordered 08/07/25
Ordered By: Rob Angelo
Discharge Date and Time
Discharge Date/Time: 08/07/25 11:16
Print Language: GUINEAN
[2025-08-07] MEDS: NEURONTIN 100 MG PO (09:42)
[2025-08-07 11:04] VITALS: BP 126/56
== END 2025-08-07 11:16 | DRG 74 ==
LOC: 3 WEST ACU 18:37
PROVIDERS: Physician Assistant Medical; Student in an Organized Health Care Education/Training Program; ADMITTING PHYSICIAN Hospitalist; ATTENDING PHYSICIAN Internal Medicine; CONSULT PHYSICIAN Psychiatry & Neurology Neurology; EMERGENCY PHYSICIAN Student in an Organized Health Care Education/Training Program; FAMILY PHYSICIAN Family Medicine
DX: E11.42 Type 2 diabetes mellitus with diabetic polyneuropathy (principal); M21.371 Foot drop, right foot; G89.29 Other chronic pain; I10 Essential (primary) hypertension; I25.10 Atherosclerotic heart disease of native coronary artery without angina pectoris; E78.00 Pure hypercholesterolemia, unspecified; E11.51 Type 2 diabetes mellitus with diabetic peripheral angiopathy without gangrene; Z88.1 Allergy status to other antibiotic agents; Z88.0 Allergy status to penicillin; Z79.84 Long term (current) use of oral hypoglycemic drugs; Z79.4 Long term (current) use of insulin; Z90.5 Acquired absence of kidney; M81.0 Age-related osteoporosis without current pathological fracture; Z79.02 Long term (current) use of antithrombotics/antiplatelets; Z11.52 Encounter for screening for COVID-19
CPT/HCPCS: 80048; 80053; 82607; 82746; 82962; 83036; 84443; 85025; 85027; 87811; 93005; 97110; 97116; 97166; 99285

== ENCOUNTER 2025-09-10 11:09 | Emergency (ER) | payer MEDICARE, OTHER, SELFPAY ==
[2025-09-10 11:17] VITALS: BP 159/77
[2025-09-10 11:54] VITALS: BMI 34.6
--- NOTE | 2025-09-10 12:25 | ED.GENMED ---
History of Present Illness
General
Chief Complaint: Wound Check/Suture Removal
Source: patient
Time Seen by Provider: 09/10/25 12:11
History of Present Illness
History of Present Illness:
Patient was sent from [facility] ([facility]] for evaluation of wounds on her left ankle and buttock. No complaints via the patient. No unusual pain no fever or chills. Wound of the left ankle has been there for about a month. The wound on the buttock 3 to
4 days.
Past History
Past History
ED Past Medical History: HTN, Hypercholesterolemia, IDDM and Other (Peripheral vascular disease)
ED Past Surgical History: Gynecological, Urological and Other
Social History
Tobacco: Non-smoker
Alcohol: None
Drug: None
Personal:
Living: with family
Review of Systems
Review of Systems
All Other Systems: Not applicable
Constitutional: Denies fever or chills
Phy Exam
Physical Exam
Physical Exam:
GENERAL: Alert and oriented in no apparent distress. Elderly and frail
EYE: Orbits normal.
NECK: Supple
CARDIAC: Regular rate and rhythm without any obvious murmurs.
LUNGS: Clear breath sounds,normal
ABDOMEN: Soft, without focal tenderness or distention. Elevated BMI
NEUROLOGICAL: Alert and oriented , grossly non-focal
SKIN: Warm and dry, multiple superficial ulcerations and open wounds to the left lower extremity at the ankle. Some debris in the base of the wounds. Some mild surrounding erythema. Early pressure ulceration to the right buttock. Some mild skin
breakdown. No surrounding cellulitis. No abscess
MUSCULOSKELETAL: No edema,no deformity.Good color
PSYCH: Normal and appropriate interaction.
Course
Orders/Labs/Results
Orders:
Orders
09/10/25 13:56
IV Insert/Care/Rem.- Treatment PRN
09/10/25 14:05
Basic Metabolic Panel Urgent
Complete Blood Count/With Diff Urgent
PTT Urgent
Prothrombin Time Urgent
09/10/25 15:47
Doxycycline [Vibramycin] 100 mg PO NOW STA
Abnormal Lab Results
09/10/25
14:05
WBC 4.3 L 10^3/uL
(4.8-10.8)
RBC 3.61 L 10^6/uL
(4.20-5.40)
Hgb 11.1 L g/dL
(12.0-16.0)
Hct 32.6 L %
(37.0-47.0)
Plt Count 111 L 10^3/uL
(130-400)
Absolute Lymphs (auto) 0.9 L 10^3/uL
(1.2-3.4)
PT 16.3 H Sec
(11.4-14.6)
APTT 35.3 H Sec
(23.4-35.0)
Sodium 130 L mmol/L
(135-145)
Glucose 199 H mg/dl
(70-99)
09/10/25 14:05
09/10/25 14:05
Vital Signs
Initial and Last Documented VS:
Initial Vital Signs
Temp Pulse Resp BP Pulse Ox
97.8 F 74 19 159/77 99
09/10/25 11:17 09/10/25 11:17 09/10/25 11:17 09/10/25 11:17 09/10/25 11:17
Last Documented Vital Signs
Temp Pulse Resp BP Pulse Ox
98.7 F 61 16 140/59 98
09/10/25 18:30 09/10/25 18:30 09/10/25 18:30 09/10/25 18:30 09/10/25 18:30
MDM/Problems Addressed
Differential Diagnosis Includes:
Buttock wound appears relatively clean. Clearly an offloading issue. Ankle has some possible early cellulitis. Will talk to the wound people at [facility]. Clinically stable and nontoxic
*Pulse Oximetry
SaO2: 99
Oxygen Mode of Delivery: Room air
Patient hypoxic: no
*Critical Care Note
Total Time (30-74mins, 75-104mins- exclusive of procedures): Not Applicable
Data Reviewed
Review of Other/Old Records Reveals: Labs, Records, Testing and Discharge Summary
ED Attending Note
-
Portions of this chart may have been created with voice recognition software.� Occasional wrong word or��sound alike� substitutions may have occurred due to the inherent limitations of voice recognition software.
Discharge Plan
Departure
Patient Disposition: Home (Routine Discharge)
Date of Disposition: 09/10/25
Time of Disposition: 16:30
Patient with high blood pressure during this ER visit?: No
Condition: Good
Discharge Problem:
Mild hyperglycemia, Mild hyponatremia, Chronic wound left lower extremity, Pressure wound to the sacral area chroni
Instructions: Wound Care (DC), Hyponatremia, BLOOD PRESSURE
Prescriptions:
New
doxycycline hyclate 100 mg capsule
100 mg PO BID 10 Days Qty: 20 0RF
No Action
amlodipine [Norvasc] 10 mg Tablet
10 mg PO DAILY
ezetimibe [Zetia] 10 mg Tablet
10 mg PO QPM
omega-3 acid ethyl esters [Lovaza] 1 gram Capsule
2 cap PO BID
fenofibrate nanocrystallized [Tricor] 48 mg Tablet
48 mg PO QPM
Januvia 100 mg Tablet
100 mg PO DAILY
clopidogrel 75 mg Tablet
75 mg PO DAILY Qty: 90 0RF
aspirin 81 mg capsule
81 mg PO DAILY Qty: 90 0RF
losartan 50 mg tablet
50 mg PO BID
celecoxib 200 mg capsule
200 mg PO BIDPRN PRN (Reason: inflammation)
ascorbic acid (vitamin C) 500 mg Tablet
500 mg PO DAILY
nystatin 100,000 unit/gram powder
1 applic TOPICAL BID
atenolol 50 mg tablet
50 mg PO DAILY
docusate sodium 100 mg Tablet
200 mg PO DAILY
insulin aspart U-100 [Novolog FlexPen U-100 Insulin] 100 unit/mL (3 mL) insulin pen
1 sliding scale dose SC AC
cholecalciferol (vitamin D3) 25 mcg (1,000 unit) Tablet
25 mcg PO DAILY
hydrochlorothiazide 12.5 mg tablet
25 mg PO DAILY
Systane Complete 0.6 % Drops
1 drp OPHTHALMIC (EYE) DAILY PRN (Reason: dry eyes)
PreserVision AREDS-2 250-90-40-1 mg Capsule
1 tab PO BID
magnesium oxide 400 mg magnesium Tablet
400 mg PO DAILY
sennosides-docusate sodium [Senna Plus] 8.6-50 mg Tablet
1 tab PO BIDPRN PRN (Reason: constipation) Qty: 0 0RF
oxycodone 10 mg Tablet
10 mg PO Q4H PRN (Reason: severe pain) Qty: 10 0RF
gabapentin 100 mg Capsule
100 mg PO TID Qty: 0 0RF
insulin glargine [Lantus Solostar U-100 Insulin] 100 unit/mL (3 mL) Insulin Pen
25 unit SC HS Qty: 0 0RF
Referrals:
Jimmy Britt MD [Active, Vascular Surgery] - 10/04/25 10:00 am
Rian Goff Jr., DO [Family Provider, Family Practice] - Follow up in 2-3 days
Activity Restrictions/Additional Instructions:
Follow-up closely with wound care
Get the sodium repeated in 3 to 4 days. It is minimally low
Offloading on the sacral area either with wedges or cushions
Interventions
Interventions:
*General Assessment Last Done: 09/10/25 11:19
*Neglect/Abuse Screening Last Done: 09/10/25 11:19
*ED COVID-19 Vaccine History Last Done: 09/10/25 11:19
*ED Influenza Vaccine History Last Done: 09/10/25 11:19
[facility] Fall Risk Assessment Tool Last Done: 09/10/25 11:54
*Risk Screen - Suicide (C-SSRS) Last Done: 09/10/25 11:19
*Nursing Disposition Last Done: 09/10/25 18:43
ED-Skin Assessment Last Done: 09/10/25 11:55
Discharge Date and Time
Discharge Date/Time: 09/10/25 18:44
Print Language: SINHALA
[2025-09-10 14:13] VITALS: BP 136/59
[2025-09-10 14:26] LABS: Hematocrit 32.6 % (37.0-47.0); Hemoglobin 11.1 g/dL (12.0-16.0); Mean Corp Hgb Conc. 34.0 g/dL (33.0-37.0); Mean Corpuscular Volume 90.3 fL (81.0-99.0); Nucleated Red Blood Cells % 0 %; Platelet Count 111 10^3/uL (130-400); Red Cell Dist. Width 12.9 % (11.5-14.5)
[2025-09-10 14:33] LABS: INR 1.30; PT 16.3 Sec (11.4-14.6)
[2025-09-10 14:34] LABS: APTT 35.3 Sec (23.4-35.0)
[2025-09-10 14:43] LABS: Blood Urea Nitrogen 17 mg/dl (7-17); Calcium 8.6 mg/dl (8.4-10.2); Carbon Dioxide 28 mmol/L (22-30); Chloride 99 mmol/L (98-107); Estimated Creatinine Clearance 78 ml/min; Glucose 199 mg/dl (70-99); Potassium 3.8 mmol/L (3.5-5.1); Sodium 130 mmol/L (135-145); eGFR > 60.00
--- NOTE | 2025-09-10 15:12 | CON.VAS ---
Consultation
Consultation Request
Date/Time Consultation Performed: 09/10/2025 1600
Requesting Provider: ED provider
Performing Provider: Lupe Frederick NP-C for Jimmy Britt MD
Reason for Consultation: LLE lateral ankle superficial wound
Medical History
-
Chief Complaint: LLE ankle wound
History of Present Illness:
This is an 79-year-old female with significant past medical history for hypertension, hypercholesteremia, diabetes, right nephrectomy, osteoporosis, spinal fracture, and peripheral arterial disease who presents to [place] ED on 09/10/2025 with
reports of chronic left lower extremity nonhealing lateral ankle wound. Patient is known to our service that she underwent intravascular lithotripsy to right distal superficial femoral artery and above-knee popliteal artery (5 mm x 80 mm E8
shockwave balloon), balloon angioplasty and drug-eluting stent placement to distal superficial femoral artery and above-knee popliteal artery (6 mm x 100 mm Zilver PTX stent), diagnostic aortobiiliac arteriogram, and diagnostic right lower extremity
arteriogram on 01/30/[address] Tin Warner III. Patient endorses that she healed her right leg wound shortly after our intervention and offers no complaints regarding RLE other than chronic trace edema. She states left lateral ankle wound has been
present for roughly 4 weeks following her bumping it on a doorway. She personally dens any changes to wound or increased pain/edema. She states once a week a home care provider from wound care evaluates her wounds at [facility] and today they
felt the wound needed to be evaluated in ED. She does not know why the felt today required fuether evaluation and she personally offers no complaints. She denies any associated nausea, vomiting, fever, chills, or increased pain at left ankle wound
site.
Past Medical History
Past Medical History: Other (hypertension, hypercholesteremia, diabetes, right nephrectomy, osteoporosis, spinal fracture, and peripheral arterial disease)
Past Surgical History: Gynecological (Bilateral oophorectomy) and Other (right nephrectomy)
Social History
Tobacco: Non-Smoker
Living: [facility])
Allergies / Home Medications
Allergy/AdvReac Type Severity Reaction Status Date / Time
clindamycin Allergy Unknown Verified 09/10/25 11:41
Penicillins Allergy Unknown Verified 09/10/25 11:41
�Medication �Instructions �Recorded �Confirmed �Type
amlodipine 10 mg tablet (Norvasc) 10 mg PO DAILY Blood Pressure 01/10/25 08/04/25 History
ezetimibe 10 mg tablet (Zetia) 10 mg PO QPM High Cholesterol 01/10/25 08/04/25 History
fenofibrate nanocrystallized 48 mg 48 mg PO QPM HIGH TRIGLYCERIDES 01/10/25 08/04/25 History
tablet (Tricor)
omega-3 acid ethyl esters 1 gram 2 cap PO BID Supplement 01/10/25 08/04/25 History
capsule (Lovaza)
sitagliptin phosphate 100 mg 100 mg PO DAILY Diabetes 01/22/25 08/04/25 History
tablet (Januvia)
aspirin 81 mg capsule 81 mg PO DAILY #90 caps 01/30/25 08/04/25 Rx
clopidogrel 75 mg tablet 75 mg PO DAILY #90 tabs 01/30/25 08/04/25 Rx
ascorbic acid (vitamin C) 500 mg 500 mg PO DAILY Supplement 08/04/25 08/04/25 History
tablet
atenolol 50 mg tablet 50 mg PO DAILY Blood Pressure 08/04/25 08/04/25 History
celecoxib 200 mg capsule 200 mg PO BIDPRN PRN inflammation 08/04/25 08/04/25 History
cholecalciferol (vitamin D3) 25 25 mcg PO DAILY Supplement 08/04/25 08/04/25 History
mcg (1,000 unit) tablet
docusate sodium 100 mg tablet 200 mg PO DAILY STOOL SOFTENER 08/04/25 08/04/25 History
hydrochlorothiazide 12.5 mg tablet 25 mg PO DAILY Fluid 08/04/25 08/04/25 History
Retention/Swelling
insulin aspart U-100 100 unit/mL 1 sliding scale dose SC AC Diabetes 08/04/25 08/04/25 History
(3 mL) subcutaneous pen (Novolog
FlexPen U-100 Insulin aspart)
losartan 50 mg tablet 50 mg PO BID Blood Pressure 08/04/25 08/04/25 History
magnesium oxide 400 mg PO DAILY Supplement 08/04/25 08/04/25 History
nystatin 100,000 unit/gram topical 1 applic topical BID skin folds 08/04/25 08/04/25 History
powder
propylene glycol 0.6 % eye drops 1 drp ophthalmic (eye) DAILY PRN 08/04/25 08/04/25 History
(Systane Complete) dry eyes
vit C 250 mg-vit E 90 mg-zinc 40 1 tab PO BID Supplement 08/04/25 08/04/25 History
mg-copper 1 [id number]
capsule (PreserVision AREDS-2)
oxycodone 10 mg tablet 10 mg PO Q4H PRN severe pain #10 08/06/25 Rx
tabs
sennosides 8.6 mg-docusate sodium 1 tab PO BIDPRN PRN constipation 08/06/25 Rx
50 mg tablet (Senna Plus) #0 tabs
gabapentin 100 mg capsule 100 mg PO TID #0 caps 08/07/25 Rx
insulin glargine 100 unit/mL (3 25 unit (0.25 mL) SC HS #0 mL 08/07/25 08/04/25 Rx
mL) subcutaneous pen (Lantus
Solostar U-100 Insulin)
Review of Systems
-
History Source: Patient
Constitutional: Reports No Symptoms
EENT: Reports No Symptoms
Respiratory: Reports No Symptoms
Cardiac: Reports No Symptoms
Vascular: Denies Leg Pain / Claudication, Numbness or Tingling
Abdomen/GI: Reports No Symptoms
: Reports No Symptoms
Musculoskeletal: Reports Edema (Reports chronic bilateral lower extremity trace edema)
Skin: Reports Other (Left lateral superficial ulcerations over ankle)
Neurological: Reports No Symptoms
Endocrine: Reports No Symptoms
Physical Exam
Vital Signs
Temp Pulse Resp BP Pulse Ox
97.7 F 65 18 136/59 97
09/10/25 14:13 09/10/25 14:13 09/10/25 14:13 09/10/25 14:13 09/10/25 14:13
Lab Results
09/10/25 14:05
09/10/25 14:05
Physical Exam
General: No Apparent Distress
HEENT: Normocephalic, Anicteric and Atraumatic
Respiratory: Non Labored Respirations
Cardiac: Negative JVD
GI: Soft, Non Tender and Non Distended
Musculoskeletal: Edema (Bilateral lower extremities with trace edema)
Skin: Warm, Dry and Other (Left lateral ankle with superficial ulcerations, see HPI for photo)
Neuro: AO x 3
Pulses: Bilateral Femoral: +1, Bilateral Dorsalis Pedis: Doppler (Can palpate left lower extremity DP +1 confirmed with Doppler) and Bilateral Posterior Tibial: Doppler
Assessment / Plan
-
Assessment: 79-year-old female with suspected venous stasis ulcerations at left lower extremity lateral ankle, chronic have been there for over the past month
Plan:
Low suspicion that arterial insufficiency is contributing to left lower extremity lateral ankle wound healing, patient has palpable DP pulse and excellent Doppler signals at DP and PT of the left foot. Additionally, ultrasound performed on
05/28/2025 demonstrates left TBI at 0.82 with multiphasic waveforms. Recommend patient keep outpatient follow-up in our office scheduled for 10/04/24, if wound worsens or continues to not heal could consider angiogram for completeness sake at this
time.
Continue local wound care
Patient seen and examined at bedside with Dr. Jimmy Britt M.D., above plan reviewed with attending.
[2025-09-10] MEDS: VIBRAMYCIN 100 MG PO (16:03)
--- NOTE | 2025-09-10 16:49 | W.PN.UPDATE ---
Update Note
Progress Note Update
Seen and examined with [facility]. Full consultation to follow. History of right lower extremity revascularization. Now with left ankle ulceration. Referred by her nursing care facility due to the wounds. Nothing has acutely worsened. On exam/she
has palpable left 2+ popliteal and DP pulse. Foot is warm and pink and well-perfused. Left calf with chronic venous changes/hyperpigmentation. In that setting on the lateral distal calf there is superficial ulceration. No signs of infection.
Recent noninvasive imaging from 05/28/2025 demonstrates a left TBI of 0.82 with multiphasic waveforms.
Plan/ Likely no significant arterial insufficiency. Likely has sufficient perfusion from an arterial perspective for wound healing. Most likely chronic venous stasis related ulceration. Recommend local wound care, compression with elastic bandage
versus compression stocking. Recommend close follow-up in our office to make sure that it is healing well (in the setting that it is not, for completeness sake would recommend angiography). I discussed that all with her. Will see her in short
follow-up in the office.
[2025-09-10 18:30] VITALS: BP 140/59
== END 2025-09-10 18:44 | disposition home or self-care (01) ==
LOC: EMR 11:09
PROVIDERS: EMERGENCY PHYSICIAN Emergency Medicine; FAMILY PHYSICIAN Family Medicine
DX: E11.65 Type 2 diabetes mellitus with hyperglycemia (principal); E87.1 Hypo-osmolality and hyponatremia; E11.51 Type 2 diabetes mellitus with diabetic peripheral angiopathy without gangrene; E11.622 Type 2 diabetes mellitus with other skin ulcer; L89.159 Pressure ulcer of sacral region, unspecified stage; L97.329 Non-pressure chronic ulcer of left ankle with unspecified severity; I87.8 Other specified disorders of veins; I10 Essential (primary) hypertension; E78.00 Pure hypercholesterolemia, unspecified; M81.0 Age-related osteoporosis without current pathological fracture; Z79.4 Long term (current) use of insulin; Z79.84 Long term (current) use of oral hypoglycemic drugs; Z79.02 Long term (current) use of antithrombotics/antiplatelets; Z79.82 Long term (current) use of aspirin; Z90.5 Acquired absence of kidney
CPT/HCPCS: 99283; 80048; 85025; 85610; 85730

== ENCOUNTER → 2025-09-17 13:45 | Outpatient (REF) | payer MEDICARE, OTHER, SELFPAY | LOC: DHVS 13:45 | PROVIDERS: ATTENDING PHYSICIAN Registered Nurse; FAMILY PHYSICIAN Family Medicine | DX: I70.221 Atherosclerosis of native arteries of extremities with rest pain, right leg (principal) | CPT/HCPCS: 93922; 93925 ==